=== PATIENT | male | born 1970 | race Caucasian/White ===

== ENCOUNTER 2016-08-05 17:37 | Emergency (ER) | payer OTHER ==
[2016-08-05 18:37] VITALS: RESP 18
--- NOTE | 2016-08-05 19:26 | ED ---
Skin/Abscess/FB HPI - General Chief complaint: Skin/Abscess/Foreign Body Stated complaint: SHINGLES Time Seen by Provider: 08/05/16 19:00 Source: patient, RN notes reviewed, old records reviewed Mode of arrival: ambulatory - History of Present Illness Initial comments: Patient is a 46 [place] chief complaint of a rash over his left upper arm for the past 6 days. Patient reports that there is blisters and it feels like fire on his arm. Patient states that he had chickenpox as a child and is concerned that this is shingles. He states that he's never had shingles before. Patient states that over the past few weeks she's been increasingly stressed and feels this very tired. He denies any other immunocompromising illnesses. Patient denies any recent fever, chills chest pain, back pain, abdominal pain, nausea vomiting, numbness or tingling, dysuria or hematuria, constipation or diarrhea, headaches or visual changes, or any other current symptoms. Patient is a smoker and states that he does have COPD. - Related Data Home Medications Medication Instructions Recorded Confirmed Albuterol Inhaler [Ventolin Hfa 2 puff INHALATION RT-Q6H PRN 08/05/16 08/05/16 Inhaler] Beclomethasone Dip 80 Mcg/Puff 1 puff INHALATION RT-BID 08/05/16 08/05/16 [Qvar 80 mcg] Budesonide-Formot 160-4.5 Mcg 2 puff INHALATION RT-BID 08/05/16 08/05/16 [Symbicort 160-4.5 Mcg Inhaler] Montelukast [Singulair] 10 mg PO HS 08/05/16 08/05/16 Umeclidinium [place] [Incruse 1 puff INHALATION RT-DAILY 08/05/16 08/05/16 Ellipta] Previous Rx's Medication Instructions Recorded HYDROcodone/APAP 10-325MG [[place] 1 tab PO Q6H PRN #15 tab 08/05/16 10-325] valACYclovir HCL [Valtrex] 1,000 mg PO Q8HR 7 Days 08/05/16 Allergies Allergy/AdvReac Type Severity Reaction Status Date / Time No Known Allergies Allergy Verified 08/05/16 19:10 Review of Systems ROS Statement: Those systems with pertinent positive or pertinent negative responses have been documented in the HPI. ROS Other: All systems not noted in ROS Statement are negative. Past Medical History Past Medical History: Asthma Additional Past Medical History / Comment(s): NECK PROBLEM History of Any Multi-Drug Resistant Organisms: None Reported Past Surgical History: Tonsillectomy Past Psychological History: No Psychological Hx Reported Smoking Status: Current every day smoker Past Alcohol Use History: Occasional Past Drug Use History: None Reported General Exam - General Exam Comments Initial Comments: Well-appearing 46-year-old male. No distress. General appearance: alert, in no apparent distress Head exam: Present: atraumatic, normocephalic, normal inspection Eye exam: Present: normal appearance, PERRL, EOMI. Absent: scleral icterus, conjunctival injection, periorbital swelling ENT exam: Present: normal exam, mucous membranes moist Neck exam: Present: normal inspection. Absent: tenderness, meningismus, lymphadenopathy Respiratory exam: Present: normal lung sounds bilaterally. Absent: respiratory distress, wheezes, rales, rhonchi, stridor Cardiovascular Exam: Present: regular rate, normal rhythm, normal heart sounds. Absent: systolic murmur, diastolic murmur, rubs, gallop, clicks GI/Abdominal exam: Present: soft, normal bowel sounds. Absent: distended, tenderness, guarding, rebound, rigid Extremities exam: Present: normal inspection, full ROM, normal capillary refill. Absent: tenderness, pedal edema, joint swelling, calf tenderness Back exam: Present: normal inspection Neurological exam: Present: alert, oriented X3, CN II-XII intact Psychiatric exam: Present: normal affect, normal mood Skin exam: Present: warm, dry, intact, normal color, rash (Erythematous blisterlike rash over the left upper shoulder and upper arm. Patient's rash is consistent with shingles. It does appear to be over multiple dermatomes.) Course Vital Signs 08/05/16 08/05/16 18:33 19:30 Temperature 99.3 F 99.1 F Pulse Rate 95 92 Respiratory 18 18 Rate Blood Pressure 121/74 122/68 O2 Sat by Pulse 94 L 95 Oximetry Medical Decision Making - Medical Decision Making Patient is a 46-year-old male with chief complaint of blisterlike rash over the left upper arm for approximately 6 days. The rash extends from the upper arm towards the neck. It is consistent with multiple dermatomes. Patient will be started on Valtrex and given pain medication. Discussed follow-up with primary care provider regards to Neurontin or gabapentin for postherpetic neuralgia. Patient agrees with treatment plan will comply. I discussed that he is contagious until all the lesions have crusted over. Patient agrees with this and states that he will avoid any immune compress pupil. Patient's history plan will comply. Disposition Clinical Impression: Shingles Disposition: HOME SELF-CARE Condition: Good Instructions: Shingles (ED) Additional Instructions: Continue to apply the, motion. Patient advised to take the prescriptions as directed. Follow-up with primary care provider if symptoms continue to persist and for postherpetic neuralgia pain. Patient advised to return to the emergency department if any alarming signs or symptoms occur. Patient is contagious to anybody is unvaccinated to the varicella virus. Patient needs to avoid any contact with immunocompromised people until all the blisters are crusted over. Prescriptions: HYDROcodone/APAP 10-325MG [[place] 10-325] 1 tab PO Q6H PRN #15 tab PRN Reason: Pain valACYclovir HCL [Valtrex] 1,000 mg PO Q8HR 7 Days Referrals: Noreen Esposito MD [Primary Care Provider] - 1-2 days Time of Disposition: 19:26
[2016-08-05 19:33] VITALS: BP 122/68; PULSE 92; TEMP 99.1
== END 2016-08-05 19:30 | disposition home or self-care (01) ==
LOC: EC 17:37
DX: B02.9 Zoster without complications (principal); J45.909 Unspecified asthma, uncomplicated; F17.200 Nicotine dependence, unspecified, uncomplicated; Z79.51 Long term (current) use of inhaled steroids; Z79.899 Other long term (current) drug therapy; Z88.8 Allergy status to other drugs, medicaments and biological substances
CPT/HCPCS: 99282

== ENCOUNTER 2018-09-25 18:57 | Inpatient (IN) | payer MEDICAID, OTHER ==
[2018-09-25] MEDS ORDERED: IPRATROPIUM-ALBUTEROL 3 ML NEB INHALATION STA (20:18)
--- NOTE | 2018-09-25 21:32 | XR ---
EXAMINATION TYPE: XR chest 2V DATE OF EXAM: 09/25/2018 COMPARISON: 09/04/2010 HISTORY: Pain TECHNIQUE: Frontal and lateral views of the chest are obtained. FINDINGS: Heart and mediastinum are normal. Lungs are clear. Diaphragm is normal. Bony thorax is int act IMPRESSION: Normal chest. No change.
--- NOTE | 2018-09-26 04:00 | ED ---
General Adult HPI - General Source: patient, RN notes reviewed, old records reviewed Mode of arrival: ambulatory Limitations: no limitations <Mark Valenzuela - Last Filed: 09/26/18 14:23> <Reagan King - Last Filed: 09/30/18 09:35> - General Chief complaint: Psychiatric Symptoms Stated complaint: suicidal Time Seen by Provider: 09/25/18 19:51 - History of Present Illness Initial comments: 40-year-old male patient passed no history of asthma presents ED for depression suicidal ideations. Patient reports that his father recently. Patient states that he has been very depressed since then. Patient reports he had a plan to drive his car into a wall in order to commit suicide. Patient states that he was encouraged by 1 of his siblings to present to the ER in order to receive help. Patient states that he had approximately 3 mile walk to the emergency department and feels that his asthma is probably worsened. Patient denies any chest pain. Patient denies any other complaints at this time. Patie nt states that he has not taken any action to hurt himself or hurt any other people today. Systemic: Pt denies fatigue, myalgia, fever/chills, rash. Pt denies weakness, night sweats, weight loss. Neuro: Pt denies headache, visual disturbances, syncope or pre-syncope. HEENT: Pt denies ocular discharge or irritation, otalgia, rhinorrhea, pharyngitis or notable lymphadenopathy. Cardiopulmonary: Pt denies chest pain, SOB, heart palpitations, dyspnea on exertion. Abdominal/GI: Pt denies abdominal pain, n/v/d. : Pt denies dysuria, burning w/ urination, frequency/urgency. Denies new onset urinary or bowel incontinence. MSK: Pt denies myalgia, loss of strength or function in extremities. Neuro: Pt denies new onset weakness, paresthesias. (Mark Valenzuela) - Related Data Home Medications Medication Instructions Recorded Confirmed Albuterol Inhaler [Ventolin Hfa 2 puff INHALATION RT-Q6H PRN 08/05/16 09/26/18 Inhaler] Budesonide-Formot 160-4.5 Mcg 2 puff INHALATION RT-BID 08/05/16 09/26/18 [Symbicort 160-4.5 Mcg Inhaler] Montelukast [Singulair] 10 mg PO HS 08/05/16 09/26/18 Umeclidinium [place] [Incruse 1 puff INHALATION RT-DAILY 08/05/16 09/26/18 Ellipta] Famotidine [Pepcid] 20 mg PO DAILY 09/25/18 09/26/18 Gabapentin [Neurontin] 600 mg PO TID 09/25/18 09/26/18 Acetaminophen Tab [Tylenol] 650 mg PO DIRECTED PRN 09/26/18 09/26/18 Allergies Allergy/AdvReac Type Severity Reaction Status Date / Time No Known Allergies Allergy Verified 09/26/18 12:58 Review of Systems ROS Other: All systems not noted in ROS Statement are negative. <Mark Valenzuela - Last Filed: 09/26/18 14:23> ROS Other: All systems not noted in ROS Statement are negative. <Reagan King - Last Filed: 09/30/18 09:35> ROS Statement: Those systems with pertinent positive or pertinent negative responses have been documented in the HPI. Past Medical History Past Medical History: Asthma Additional Past Medical History / Comment(s): NECK PROBLEM History of Any Multi-Drug Resistant Organisms: None Reported Past Surgical History: Tonsillectomy Past Psychological History: No Psychological Hx Reported Smoking Status: Current every day smoker Past Alcohol Use History: Daily Past Drug Use History: None Reported <Mark Valenzuela - Last Filed: 09/26/18 14:23> - Past Family History Mother Family Medical History: COPD Additional Family Medical History / Comment(s): Rheumatoid arthritis Father Family Medical History: COPD <Reagan King - Last Filed: 09/30/18 09:35> General Exam Limitations: no limitations <Mark Valenzuela - Last Filed: 09/26/18 14:23> - General Exam Comments Initial Comments: Constitutional: NAD, AOX3, Pt has pleasant affect. HEENT: NC/AT, trachea midline, neck supple, no lymphadenopathy. Posterior pharynx non erythematous, without exudates. External ears appear normal, without discharge. Mucous membranes moist. Eyes PERRLA, EOM intact. There is no scleral icterus. No pallor noted. Cardiopulmonary: RRR, no murmurs, rubs or gallops, no JVD noted. Mild wheezing in anterior lung armas, after breathing treatment Lungs CTAB in anterior and posterior armas. No peripheral edema. Abdominal exam: Abdomen soft and non-distended. Abdomen non-tender to palpation in all 4 quadrants. Bowel sounds active in LLQ. No hepatosplenomegaly. No ecchymosis Neuro: CN II-XII grossly intact. No nuchal rigidity. MSK: No posterior calf tenderness bilaterally, homans sign negative bilaterally. Posterior tibialis and radial pulse +2 bilaterally. Sensation intact in upper and lower extremities. Full active ROM in upper and lower extremities, 5/5 stregnth. (Mark Valenzuela) Course Vital Signs 09/25/18 09/25/18 09/25/18 19:41 20:49 20:55 Temperature 98.2 F Pulse Rate 108 H 70 72 Respiratory 16 16 16 Rate Blood Pressure 144/92 O2 Sat by Pulse 96 Oximetry 09/26/18 09/26/18 09/26/18 03:00 07:30 07:41 Temperature Pulse Rate 88 99 98 Respiratory 18 Rate Blood Pressure 146/85 O2 Sat by Pulse 96 Oximetry 09/26/18 12:19 Temperature 97.2 F L Pulse Rate 95 Respiratory 18 Rate Blood Pressure 121/85 O2 Sat by Pulse 98 Oximetry Medical Decision Making <Mark Valenzuela - Last Filed: 09/26/18 14:23> - Lab Data Result diagrams: 09/26/18 14:00 09/27/18 07:23 <Reagan King - Last Filed: 09/30/18 09:35> - Medical Decision Making 40-year-old male patient passed no history of asthma presents ED for depression suicidal ideations. Patient reports that his father recently. Patient states that he has been very depressed since then. Patient reports he had a plan to drive his car into a wall in order to commit suicide. Patient states that he was encouraged by 1 of his siblings to present to the ER in order to receive help. Patient states that he had approximately 3 mile walk to the [facility] ency department and feels that his asthma is probably worsened. Patient denies any chest pain. Patient denies any other complaints at this time. Patient states that he has not taken any action to hurt himself or hurt any other people today. Pt VSS, afebrile. Physical exam displayed: Mild wheezing in anterior lung armas, after breathing treatment Lungs CTAB in anterior and posterior armas. Chest x-ray revealed no acute process. Patient asymptomatic after breathing treatment. Patient clear for psychiatric evaluation. Pt signed out to attending physician Dr. Durant. Patient admitted to this psychiatric facility. (Mark Valenzuela) I saw this patient in conjunction with the physician educational assistant. I performed independent history and physical exam. Agree with case management. (Reagan King) - Lab Data Lab Results 09/26/18 Range/Units 04:40 Urine Opiates Screen Not Detected (NotDetected) Ur Oxycodone Screen Not Detected (NotDetected) Urine Methadone Screen Not Detected (NotDetected) Ur Propoxyphene Screen Not Detected (NotDetected) Ur Barbiturates Screen Not Detected (NotDetected) U Tricyclic Antidepress Not Detected (NotDetected) Ur Phencyclidine Scrn Not Detected (NotDetected) Ur Amphetamines Screen Not Detected (NotDetected) U Methamphetamines Scrn Not Detected (NotDetected) U Benzodiazepines Scrn Not Detected (NotDetected) Urine Cocaine Screen Detected H (NotDetected) U Marijuana (THC) Screen Not Detected (NotDetected) Disposition Is patient prescribed a controlled substance at d/c from ED?: No <Mark Valenzuela - Last Filed: 09/26/18 14:23> <Reagan King - Last Filed: 09/30/18 09:35> Clinical Impression: Depression, Suicidal ideation Disposition: ADMITTED IP TO THIS [facility] Condition: Serious
[2018-09-26 05:29] LABS: Amphetamine Screen,Urine Not Detected (NotDetected); Barbiturate Screen,Urine Not Detected (NotDetected); Benzodiazepines Screen,Urine Not Detected (NotDetected); Cocaine Screen,Urine Detected (NotDetected); Methadone Screen, Urine Not Detected (NotDetected); Opiate Screen,Urine Not Detected (NotDetected); Oxycodone Screen, Urine Not Detected (NotDetected); Phencyclidine Screen,Urine Not Detected (NotDetected); Tricyclic Antidepressant,Urine Not Detected (NotDetected); Urn Cannabinoid Scrn Not Detected (NotDetected)
[2018-09-26] MEDS ORDERED: IPRATROPIUM-ALBUTEROL 3 ML NEB INHALATION STA (07:20)
[2018-09-26] MEDS ORDERED: GABAPENTIN 300 MG CAP PO SCH (09:00)
[2018-09-26] MEDS ORDERED: ACETAMINOPHEN TAB 325 MG TAB PO STA (10:56)
[2018-09-26] MEDS ORDERED: LORazepam 1 MG TAB PO PRN ×2 (11:38)
[2018-09-26] MEDS: LORazepam 1 MG TAB PO PRN (12:15)
[2018-09-26] MEDS ORDERED: ZIPRASIDONE 20 MG VIAL IM PRN (12:26)
[2018-09-26] MEDS ORDERED: MAGNESIUM HYDROXIDE 2,400 MG/10 ML CUP PO PRN (12:26)
[2018-09-26] MEDS: NICOTINE 21MG/24HR PATCH TRANSDERM SCH (14:25)
[2018-09-26] MEDS: ACETAMINOPHEN TAB 325 MG TAB PO PRN (14:26)
[2018-09-26 14:35] LABS: Anisocytosis Slight; Basophils # (A) 0.1 k/uL (0-0.2); Basophils % (A) 1 %; Eosinophils # (A) 0.2 k/uL (0-0.7); Eosinophils % (A) 3 %; HCT 46.9 % (39.0-53.0); Lymphocytes # (A) 2.1 k/uL (1.0-4.8); Lymphocytes % (A) 33 %; MCH 29.7 pg (25.0-35.0); MCV 92.7 fL (80.0-100.0); Mean Platelet Volume 7.5; Monocytes # (A) 0.5 k/uL (0-1.0); Monocytes % (A) 8 %; Neutrophils # (A) 3.3 k/uL (1.3-7.7); Neutrophils % (A) 51 %; Platelet Count 160 k/uL (150-450); RBC 5.06 m/uL (4.30-5.90); RDW 16.1 % (11.5-15.5); WBC 6.5 k/uL (3.8-10.6)
[2018-09-26 14:59] LABS: Albumin 4.8 g/dL (3.5-5.0); Calcium 10.3 mg/dL (8.4-10.2); Potassium 5.1 mmol/L (3.5-5.1); Total Bilirubin 0.6 mg/dL (0.2-1.3); Total Protein 8.3 g/dL (6.3-8.2)
[2018-09-26 15:14] LABS: Cholesterol 251 mg/dL (<200); Triglycerides 69 mg/dL (<150)
[2018-09-26 15:21] LABS: LDL Cholesterol,Calculated 92 mg/dL (0-99)
[2018-09-26 15:23] LABS: HDL Cholesterol 145 mg/dL (40-60)
--- NOTE | 2018-09-26 15:52 | P.HPMEDMHU ---
History of Present Illness H&P Date: 09/26/18 Chief Complaint: depression Patient is a 48-year-old male past medical history of asthma, tobacco abuse, chronic neck problems, and rheumatoid arthritis who presented to the ER with complaints of suicidal ideation. He has subsequently been admitted to the mental health unit and we are asked to evaluate for medical H&P. Patient seen and examined. He states that his girlfriend and he has been suffering from depression. He has been drinking up to a fifth daily his last drink was yesterday at 5 PM, he has been drinking this much for approximately 20 days.. He reports that he used cocaine and attempt to compensate as well. He is very concerned his lost 15-20 pounds over the last several weeks. He reports that after his long walks the hospital his asthma was exacerbated by this was relieved with one breathing treatment in the ER. He denies any recent cough, cold, fever, flu, nausea, vomiting, or shortness of breath. He states he has had kidney problems in the past and his kidneys have shut down along with jaundice developing. This was due to urinary retention at that point in time. His PCP is typically Dr. sEposito that he called the office and got a message that Dr. Mcdermott is now covering her patients. Review of Systems Pertinent positives and negatives as discussed in HPI, a complete review of systems was performed and all other systems are negative. Past Medical History Past Medical History: Asthma Additional Past Medical History / Comment(s): Chronic neck pain, rheumatoid arthritis, acid reflux, prior kidney and liver problems History of Any Multi-Drug Resistant Organisms: None Reported Past Surgical History: Tonsillectomy Additional Past Surgical History / Comment(s): Colonoscopy, repair of colonic perforation. Past Psychological History: No Psychological Hx Reported Smoking Status: Current every day smoker Past Alcohol Use History: Daily Past Drug Use History: Cocaine Additional History: Works as a long-distance student truck driver. He typically does not use illicit drugs. - Past Family History Mother Family Medical History: COPD Additional Family Medical History / Comment(s): Rheumatoid arthritis Father Family Medical History: COPD Medications and Allergies Home Medications Medication Instructions Recorded Confirmed Type Albuterol Inhaler [Ventolin Hfa 2 puff INHALATION RT-Q6H PRN 08/05/16 09/26/18 History Inhaler] Budesonide-Formot 160-4.5 Mcg 2 puff INHALATION RT-BID 08/05/16 09/26/18 History [Symbicort 160-4.5 Mcg Inhaler] Montelukast [Singulair] 10 mg PO HS 08/05/16 09/26/18 History Umeclidinium [place] [Incruse 1 puff INHALATION RT-DAILY 08/05/16 09/26/18 History Ellipta] Famotidine [Pepcid] 20 mg PO DAILY 09/25/18 09/26/18 History Gabapentin [Neurontin] 600 mg PO TID 09/25/18 09/26/18 History Acetaminophen Tab [Tylenol] 650 mg PO DIRECTED PRN 09/26/18 09/26/18 History Allergies Allergy/AdvReac Type Severity Reaction Status Date / Time No Known Allergies Allergy Verified 09/26/18 12:58 Physical Exam Osteopathic Statement: *. No significant issues noted on an osteopathic structural exam other than those noted in the History and Physical/Consult. Vitals: Vital Signs Temp Pulse Pulse Pulse Resp BP BP 09/26/18 15:35 99 16 168/76 09/26/18 14:28 98 18 09/26/18 13:24 98.2 F 81 18 09/26/18 13:00 98.2 F 81 18 09/26/18 12:19 97.2 F L 95 18 121/85 09/26/18 07:41 98 09/26/18 07:30 99 09/26/18 03:00 88 18 146/85 09/25/18 20:55 72 16 09/25/18 20:49 70 16 09/25/18 19:41 98.2 F 108 H 16 144/92 BP Pulse Ox 09/26/18 15:35 09/26/18 14:28 135/86 09/26/18 13:24 132/77 09/26/18 13:00 132/77 09/26/18 12:19 98 09/26/18 07:41 09/26/18 07:30 09/26/18 03:00 96 09/25/18 20:55 09/25/18 20:49 09/25/18 19:41 96 Intake and Output 09/26/18 09/26/18 09/26/18 06:59 14:59 22:59 Other: Weight 62.621 kg General: non toxic, no distress, appears at stated age, cachectic,, temporal wasting Derm: no unusual rashes/lesions no unusual ecchymoses, warm, dry Head: atraumatic, normocephalic, symmetric Eyes: EOMI, no lid lag, anicteric sclera, pupils equal round reactive to light ENT: Nose and ears atraumatic, no thrush, no pharyngeal erythema Neck: No thyromegaly, no cervical lymphadenopathy, trachea midline, supple Mouth: no lip lesion, mucus membranes moist Cardiovascular: S1S2 reg, no murmur, positive posterior tibial pulse bilateral, no edema, capillary refill less than 2 seconds Lungs: CTA bilateral, no rhonchi, no rales , no accessory muscle use Abdominal: soft, nontender to palpation, no guarding, no appreciable organomegaly, normal bowel sounds Ext: no gross muscle atrophy, muscle strength 5 out of 5 in all 4 extremities grossly, no contractures, Neuro: CN II-XI grossly intact, light touch intact all 4 extremities, finger to nose within normal limits, Psych: Alert, oriented, appropriate affect Cranial Nerve Examination - Cranial Nerves Cranial Nerve II- Optic: Intact Cranial Nerve III- Oculomotor: Intact Cranial Nerve IV- Trochlear: Intact Cranial Nerve V- Trigeminal: Intact Cranial Nerve - Abducens: Intact Cranial Nerve VII- Facial: Intact Cranial Nerve VIII- Auditory: Intact Cranial Nerve IX- Glossopharyngeal: Intact Cranial Nerve X- Vagus: Intact Cranial Nerve XI- Accessory: Intact Cranial Nerve XII- Hypoglossal: Intact Results CBC & Chem 7: 09/26/18 14:00 09/26/18 14:00 Labs: Abnormal Lab Results - Last 24 Hours (Table) 09/26/18 09/26/18 09/26/18 Range/Units 04:40 14:00 14:00 RDW 16.1 H (11.5-15.5) % Sodium (137-145) mmol/L BUN (9-20) mg/dL Creatinine (0.66-1.25) mg/dL Calcium (8.4-10.2) mg/dL AST (17-59) U/L Total Protein (6.3-8.2) g/dL Cholesterol 251 H (<200) mg/dL HDL Cholesterol 145 H (40-60) mg/dL TSH (0.465-4.680) mIU/L Urine Cocaine Screen Detected H (NotDetected) 09/26/18 Range/Units 14:00 RDW (11.5-15.5) % Sodium 135 L (137-145) mmol/L BUN 21 H (9-20) mg/dL Creatinine 1.35 H (0.66-1.25) mg/dL Calcium 10.3 H (8.4-10.2) mg/dL AST 61 H (17-59) U/L Total Protein 8.3 H (6.3-8.2) g/dL Cholesterol (<200) mg/dL HDL Cholesterol (40-60) mg/dL TSH 10.200 H (0.465-4.680) mIU/L Urine Cocaine Screen (NotDetected) Chest x-ray: report reviewed Thrombosis Risk Factor Assmnt - DVT/VTE Prophylaxis DVT/VTE Prophylaxis: Low risk, early ambulation encouraged - Choose All That Apply Any of the Below Risk Factors Present?: No Other Risk Factors: No Other congenital or acquired thrombophilia - If yes, enter type in comment: No Thrombosis Risk Factor Assessment Level: Very Low Risk Assessment and Plan Assessment: Asthma without exacerbation -Resume home Symbicort, substitutes per Najma for Incruse ellipta, as needed albuterol -No indication for steroid at this time Dehydration as evidenced by elevated Bun, creatinine, and calcium -Encourage oral fluid intake -Repeat labs in a.m. Severe protein calorie malnutrition, weight loss - ensure - encourage oral intake Elevated TSH -Check free T4 Alcohol intoxication with impending withdrawal -Start folic acid, thiamine -CIWA protocol -Cessation encouraged Chronic back pain -Tylenol and Motrin as needed GERD -resume home Pepcid Tobacco abuse -Cessation -Nicotine replacement Thank you for allowing us to participate in the care of this patient. We will follow peripherally. Do not hesitate to contact us with questions. Someone can be reached from the [facility] hospitalist group at all hours of the day at [phone].
[2018-09-26] MEDS: GABAPENTIN 300 MG CAP PO SCH ×2 (16:15→22:25)
[2018-09-26] MEDS: FOLIC ACID 1 MG TAB PO SCH (16:16)
[2018-09-26] MEDS: THIAMINE 100 MG TAB PO SCH (16:16)
[2018-09-26] MEDS: MONTELUKAST 10 MG TAB PO SCH (22:25)
[2018-09-26] MEDS: QUEtiapine 50 MG TAB PO SCH (22:26)
[2018-09-26 23:32] LABS: Hemoglobin A1C 5.2 % (4.0-6.0)
[2018-09-27] MEDS: SYMBICORT 160-4.5 MCG INHALER INHALATION SCH ×3 (07:30→22:21)
[2018-09-27 08:16] LABS: Calcium 10.1 mg/dL (8.4-10.2); Potassium 4.9 mmol/L (3.5-5.1)
[2018-09-27] MEDS: buPROPion XL 150 MG TAB.ER.24H PO SCH (08:41)
[2018-09-27] MEDS: FAMOTIDINE 20 MG TAB PO SCH (08:41)
[2018-09-27] MEDS: FOLIC ACID 1 MG TAB PO SCH (08:41)
[2018-09-27] MEDS: GABAPENTIN 300 MG CAP PO SCH ×3 (08:41→20:59)
[2018-09-27] MEDS: THIAMINE 100 MG TAB PO SCH (08:41)
[2018-09-27] MEDS: NICOTINE 21MG/24HR PATCH TRANSDERM SCH (08:42)
[2018-09-27] MEDS: LORazepam 1 MG TAB PO PRN ×5 (08:45→21:03)
[2018-09-27 09:31] LABS: T4, Free (Free Thyroxine) 0.91 ng/dL (0.78-2.19)
[2018-09-27] MEDS: IPRATROPIUM 0.5 MG/2.5 ML NEBU INHALATION SCH ×4 (10:07→20:28)
--- NOTE | 2018-09-27 10:55 | P.HP ---
Psychiatric H&P - . H&P Date: 09/27/18 History & Physical: Allergies Allergy/AdvReac Type Severity Reaction Status Date / Time No Known Allergies Allergy Verified 09/26/18 12:58 Vital Signs Temp 98.7 F 09/27/18 06:45 Pulse 94 09/27/18 06:45 Resp 12 09/27/18 06:45 BP 97/65 09/27/18 06:45 Pulse Ox 94 L 09/26/18 18:37 Intake & Output 09/26/18 09/27/18 09/27/18 18:59 06:59 18:59 Weight 62.621 kg 63 kg Laboratory Last Values WBC 6.5 k/uL (3.8-10.6) 09/26/18 14:00 RBC 5.06 m/uL (4.30-5.90) 09/26/18 14:00 Hgb 15.0 gm/dL (13.0-17.5) 09/26/18 14:00 Hct 46.9 % (39.0-53.0) 09/26/18 14:00 MCV 92.7 fL (80.0-100.0) 09/26/18 14:00 MCH 29.7 pg (25.0-35.0) 09/26/18 14:00 MCHC 32.0 g/dL (31.0-37.0) 09/26/18 14:00 RDW 16.1 % (11.5-15.5) H 09/26/18 14:00 Plt Count 160 k/uL (150-450) 09/26/18 14:00 Neutrophils % 51 % 09/26/18 14:00 Lymphocytes % 33 % 09/26/18 14:00 Monocytes % 8 % 09/26/18 14:00 Eosinophils % 3 % 09/26/18 14:00 Basophils % 1 % 09/26/18 14:00 Neutrophils # 3.3 k/uL (1.3-7.7) 09/26/18 14:00 Lymphocytes # 2.1 k/uL (1.0-4.8) 09/26/18 14:00 Monocytes # 0.5 k/uL (0-1.0) 09/26/18 14:00 Eosinophils # 0.2 k/uL (0-0.7) 09/26/18 14:00 Basophils # 0.1 k/uL (0-0.2) 09/26/18 14:00 Anisocytosis Slight 09/26/18 14:00 Sodium 141 mmol/L (137-145) 09/27/18 07:23 Potassium 4.9 mmol/L (3.5-5.1) 09/27/18 07:23 Chloride 104 mmol/L (98-107) 09/27/18 07:23 Carbon Dioxide 28 mmol/L (22-30) 09/27/18 07:23 Anion Gap 9 mmol/L 09/27/18 07:23 BUN 21 mg/dL (9-20) H 09/27/18 07:23 Creatinine 1.27 mg/dL (0.66-1.25) H 09/27/18 07:23 Est GFR (CKD-EPI)AfAm 77 (>60 ml/min/1.73 sqM) 09/27/18 07:23 Est GFR (CKD-EPI)NonAf 66 (>60 ml/min/1.73 sqM) 09/27/18 07:23 Glucose 104 mg/dL (74-99) H 09/27/18 07:[address] Glu mg/dL 103 09/26/18 14:00 Hemoglobin A1c 5.2 % (4.0-6.0) 09/26/18 14:00 Calcium 10.1 mg/dL (8.4-10.2) 09/27/18 07:23 Total Bilirubin 0.6 mg/dL (0.2-1.3) 09/26/18 14:00 AST 61 U/L (17-59) H 09/26/18 14:00 ALT 43 U/L (21-72) 09/26/18 14:00 Alkaline Phosphatase 96 U/L (38-126) 09/26/18 14:00 Total Protein 8.3 g/dL (6.3-8.2) H 09/26/18 14:00 Albumin 4.8 g/dL (3.5-5.0) 09/26/18 14:00 Triglycerides 69 mg/dL (<150) 09/26/18 14:00 Cholesterol 251 mg/dL (<200) H 09/26/18 14:00 LDL Cholesterol, Calc 92 mg/dL (0-99) 09/26/18 14:00 HDL Cholesterol 145 mg/dL (40-60) H 09/26/18 14:00 TSH 12.100 mIU/L (0.465-4.680) H 09/27/18 07:23 Free T4 0.91 ng/dL (0.78-2.19) 09/27/18 07:23 Urine Opiates Screen Not Detected (NotDetected) 09/26/18 04:40 Ur Oxycodone Screen Not Detected (NotDetected) 09/26/18 04:40 Urine Methadone Screen Not Detected (NotDetected) 09/26/18 04:40 Ur Propoxyphene Screen Not Detected (NotDetected) 09/26/18 04:40 Ur Barbiturates Screen Not Detected (NotDetected) 09/26/18 04:40 U Tricyclic Antidepress Not Detected (NotDetected) 09/26/18 04:40 Ur Phencyclidine Scrn Not Detected (NotDetected) 09/26/18 04:40 Ur Amphetamines Screen Not Detected (NotDetected) 09/26/18 04:40 U Methamphetamines Scrn Not Detected (NotDetected) 09/26/18 04:40 U Benzodiazepines Scrn Not Detected (NotDetected) 09/26/18 04:40 Urine Cocaine Screen Detected (NotDetected) H 09/26/18 04:40 U Marijuana (THC) Screen Not Detected (NotDetected) 09/26/18 04:40 09/27/18 10:55 Chief complaint Suicidal thoughts History of presenting illness Patient stated his girlfriend/fianc of seven years on September 05, 2018. Things have fallen apart since then he says. He reports crying spells, no motivation, does not want to work, stressed at work, reports missing lot of time at work, started drinking heavily since the of his girlfriend, prior to that he says he is beer drinker. He states his girl friend, majo, children w ill be calling him constantly. He reports feeling extremely, sad, hopeless, looking at his girl friends picture, called his sister and threatened suicidal ideations due to feeling, frustrated. He stated he was also drunk at that time, reports to have consumed a litre of vodka. He stated he did not want to hurt self and decided to go the hospital and get help. He claims to have walked to the hospital as he did not want to drive under the influence of alcohol. He stated kendal in God, kendal things could get better, and believing in self keeps him moving forward in his life and currently denies any intentions or plans to hurt self or others. He reports mood swings and says he is quick to change, stating he could be feeling down and if something good comes up he would snap into being happy and upbeat. He denies current auditory or visual hallucinations. He reports feeling paranoid at times depending upon the situation. Past psychiatric history One psychiatric hospitalization 15 years ago after the of his mother, bad grief. Reports being diagnosed with manic depression. He report s being treated with xanax, seroquel. He claims his Primary care physician Dr. Velasquez would prescribe him psychiatric medications. He claims to have stopped taking psychiatric medications many years ago. Substance use history He claims his friend gave him cocaine few days ago, stopped marijuana use 6 weeks ago, started drinking one pint of vodka every day since the the of his girlfriend on september 05, 2018. Legal problems Child support issues, no pending cases. Family psychiatric treatment history denies Medical history Asthma, neck problem Social history Born in [place], [place]. Riased by both parents. Says childhood was rough, dad was strict, financial problems, no history of abuse. Has three sisters, he is the oldest child. Graduated from [employer] with four year degree. long time ago, four children out of that mirage. 10 YEAR WORK HISTORY WITH [employer], still works with that company. Mental status exam 48 year old male, appears stated age in fair grooming and hygiene. Maintains good eye contact. No abnormal movements noted. speech and thought process are goal directed. mood is reported as sad affect constricted. Denies current auditory or visual hallucinations . denies current paranoid ideations. The patient is alert and oriented 4 and in no apparent distress. Denies current suicidal or homicidal ideation. insight and judgment are improving, wants to get help and get better. Diagnosis Major depression recurrent moderate type Polysubstance abuse, Alcohol, cocaine and marijuana abuse Plan 48-year-old male admitted through emergency department for suicidal ideations. Medicine consult for history and physical examination psychosocial evaluation. After discussing benefits and risks of medications he has agreed to take wellbutrin for depression and requested seroquel for sleep. Will start him on wellbutrin 150mg po daily for depression and seroquel 50mg po qhs. Dose to be titrated as tolerated and responsiveness. Continue PRN medications as needed for agitation Monitor for symptoms To receive milieu therapy group therapy individual therapy occupational therapy recreational therapy and medication education. Discharge with outpatient follow-up. Treatment goals: Medication stabilization of depression Insight improvement and encourage treatment adherence, and development of better coping skills will continue to be free of suicide thoughts and behavior.
[2018-09-27] MEDS: ALBUTEROL INHALER 60 PUFF/8 GM INHALER INHALATION PRN ×2 (13:37→19:04)
[2018-09-27] MEDS: ACETAMINOPHEN TAB 325 MG TAB PO PRN (17:27)
[2018-09-27] MEDS: QUEtiapine 50 MG TAB PO SCH (20:59)
[2018-09-27] MEDS: MONTELUKAST 10 MG TAB PO SCH (20:59)
[2018-09-28] MEDS: NICOTINE 21MG/24HR PATCH TRANSDERM SCH (08:36)
[2018-09-28] MEDS: THIAMINE 100 MG TAB PO SCH (08:37)
[2018-09-28] MEDS: FAMOTIDINE 20 MG TAB PO SCH (08:37)
[2018-09-28] MEDS: FOLIC ACID 1 MG TAB PO SCH (08:37)
[2018-09-28] MEDS: ACETAMINOPHEN TAB 325 MG TAB PO PRN ×3 (08:37→17:05)
[2018-09-28] MEDS: GABAPENTIN 300 MG CAP PO SCH ×3 (08:37→20:40)
[2018-09-28] MEDS: buPROPion XL 150 MG TAB.ER.24H PO SCH (08:37)
[2018-09-28] MEDS: LORazepam 1 MG TAB PO PRN ×4 (08:39→20:40)
[2018-09-28] MEDS: SYMBICORT 160-4.5 MCG INHALER INHALATION SCH ×2 (08:41→20:46)
[2018-09-28] MEDS: IPRATROPIUM 0.5 MG/2.5 ML NEBU INHALATION SCH ×3 (08:43→16:43)
[2018-09-28] MEDS: ALBUTEROL INHALER 60 PUFF/8 GM INHALER INHALATION PRN ×2 (13:48→20:41)
--- NOTE | 2018-09-28 14:18 | P.PN ---
Progress Note - Text Progress Note Date: 09/28/18 Interval History: Patient is a 48-year-old male who was seen today and reports that he continues to have ups and downs during the day where he will feel fine and then have feelings of sadness, tearfulness. He states that after his mother years ago he was placed on Seroquel and given diagnosis of bipolar disorder and states he was taking 450 mg a day. He states that he continued on the Seroquel for several years and then eventually discontinued it. Patient states that he was doing fairly well and has had his current job for the last 10 years and done well at his job. He and his fiance have been together for 7 years and she on September 05 of this year. Patient states that at that time he began using alcohol heavily a fifth daily use cocaine on one occasion and also had suicidal thoughts with a plan. He had seen his primary care physician who had restarted Seroquel and he took this and alcohol in an attempt to hurt himself. Patient states that he is not having any side effects from the Wellbutrin is not sleeping well at night and is requesting an increase in his Seroquel. Patient states that he does have financial difficulties, gives away a lot of his money, and was doing less of this when he was on Seroquel a number of years ago. He is able to report episodes of depression at times that have not caused him great difficulty with his activities of daily living. He does not endorse manic symptoms but is able to endorse some hypomanic symptoms with periods of de creased need for sleep, increased energy and more impulsive spending. Patient was using 1-2 beers on a daily basis prior to his fiance's . Mental Status: Appearance/Attitude: Patient is appropriately and neatly dressed, makes good eye contact and is cooperative. Behavior: Patient does not exhibit any psychomotor retardation or agitation but was tearful during the interview. Speech/Language: Patient's speech is spontaneous of normal volume and rhythm and he is coherent. Thought Process: Patient was goal-directed, no evidence of loose association or flight of ideas Thought Content: Patient denies any auditory or visual hallucinations and no delusions or paranoid ideation were elicited. Patient states that he continues to have periods where he feels overwhelmed, irritable and extremely tearful. He states that these times he is very sad and has suicidal thoughts. He reports that he is not sleeping well perhaps 12 hours a night, is complaining of a headache as well as pain. He states he has been eating better today. Suicidal/Homicidal Ideation: Patient continues to report suicidal thoughts at times with no intent to act or plan and no current homicidal ideation. Sensorium/Cognition: Patient is alert and oriented to person, place, and time and his recent and remote memory are grossly intact. Mood/Affect: Patient's mood remains depressed, affect is appropriate to his mood Insight/Judgment: Patient's insight and judgment are fair Assessment: Patient reports a history of being diagnosed in the past when his mother with a bipolar disorder and was placed on Seroquel 450 mg a day, patient states he did well for several years on this and then discontinued it. He is able to give a history of episodes of depression as well as episodes of hypomania that have not caused him any difficulty in his work however he does have financial difficulties due to his impulsive spending, giving money away. He states that he was not using alcohol at the amount or quantity that he was after the of his fiance in August. Patient states he was drinking 2 beers a day in the past as well as a periodic shot of vodka however he states he was drinking a fifth of alcohol a day since the of his fiance. Patient is also complaining of a headache as well as ongoing pain issues and states that pain medication he was on in the past have not been that effective. Plan: Patient and I discussed continuing the Wellbutrin 150 mg in the morning and will consider increasing this further however caution due to his possible bipolar type symptoms and increasing his Seroquel to 50 mg in the morning and 100 mg at bedtime and continuing to titrate the dose to target his mood. Patient does give some history of mood fluctuation with symptoms of depression and hypomania over the course of the years. Patient continues to require hospitalization to further stabilize his mood.
[2018-09-28] MEDS: MAG HYDROX/AL HYDROX/SIMETH 30 ML CUP PO PRN (20:06)
[2018-09-28] MEDS: QUEtiapine 100 MG TAB PO SCH (20:40)
[2018-09-28] MEDS: MONTELUKAST 10 MG TAB PO SCH (20:40)
[2018-09-29] MEDS: IPRATROPIUM 0.5 MG/2.5 ML NEBU INHALATION SCH ×5 (01:37→21:01)
[2018-09-29] MEDS: NICOTINE 21MG/24HR PATCH TRANSDERM SCH (08:35)
[2018-09-29] MEDS: THIAMINE 100 MG TAB PO SCH (08:35)
[2018-09-29] MEDS: INCRUSE ELLIPTA 62.5 MG PO SCH (08:36)
[2018-09-29] MEDS: FOLIC ACID 1 MG TAB PO SCH (08:36)
[2018-09-29] MEDS: FAMOTIDINE 20 MG TAB PO SCH (08:36)
[2018-09-29] MEDS: buPROPion XL 150 MG TAB.ER.24H PO SCH (08:36)
[2018-09-29] MEDS: QUEtiapine 50 MG TAB PO SCH (08:36)
[2018-09-29] MEDS: GABAPENTIN 300 MG CAP PO SCH ×3 (08:36→21:17)
[2018-09-29] MEDS: LORazepam 1 MG TAB PO PRN ×4 (08:38→21:21)
[2018-09-29] MEDS: SYMBICORT 160-4.5 MCG INHALER INHALATION SCH ×3 (08:40→22:11)
[2018-09-29] MEDS: ALBUTEROL INHALER 60 PUFF/8 GM INHALER INHALATION PRN ×2 (12:25→17:17)
[2018-09-29] MEDS: ACETAMINOPHEN TAB 325 MG TAB PO PRN (12:27)
--- NOTE | 2018-09-29 14:10 | P.PN ---
Progress Note - Text Progress Note Date: 09/29/18 Interval History: Patient is a 48-year-old male who is admitted due to suicidal ideation, depression and had been using an increasing amount of alcohol. Patient states that he slept okay last night except for the nightmares grade dreamt that he was crashing his car with his fiance with him. He reported today that he continues to have dry heaves and vomit after most of his meals, stating that he still feels shaky and sweaty at times. Patient states that he hasn't notified nursing staff of this. He reports that he is still feeling depressed and up and down states that he was hoping that he would be in more control of his mood today but still has a crying episode when he discovered that one of his fellow peers had the same first name as his fiance. He states that he continues to have suicidal thoughts no plan to act while he is in the hospital but fears once he is discharged that he may do so. Patient reports that he is eating and did sleep well last night except for the nightmares. He reported not feeling sedated during the day with the addition of a morning dose of Seroquel. Patient states that he is interested in rehab after he is discharged he doesn't return to using alcohol, he was to call [facility] to begin the intake process but then stated to me that he has no way to get there. Mental Status: Appearance/Attitude: Patient is neatly and appropriately dressed, makes intermittent eye contact and is cooperative. Behavior: Patient does not exhibit any psychomotor agitation or retardation. Speech/Language: Patient's speech is spontaneous of normal volume and rhythm and he is coherent Thought Process: Patient is goal-directed there is no evidence of loose association or flight of ideas Thought Content: Patient denies any auditory or visual hallucinations, no delusions or paranoid ideation were elicited. Patient continues to feel depressed and sad stating he has nightmares while he is sleeping and continues to report withdrawal symptoms of feeling shaky, dry heaves. Patient states that he continues to cry and feels that his moods continues to go up and down and that he is unable to control them. Suicidal/Homicidal Ideation: Patient reports continuing to have suicidal ideation with no current plan or intent to act but fears once he is discharged if he feels this way he may act on them, he denies any current homicidal ideation. Sensorium/Cognition: Patient is alert and oriented to person, place, and time and his recent and remote memory are grossly intact. Mood/Affect: Patient's mood remains depressed and his affect is slightly blunted Insight/Judgment: Patient's insight and judgment are fair Assessment: Patient continues to express suicidal ideation as well as feeling depressed and states that his mood goes up and down and he continues to have crying spells and reported nightmares while sleeping. He states that he's been eating okay but continues to drive he and vomit after each meal. Patient continues to feel that he's having withdrawal symptoms from alcohol feeling sweaty and shaky at times. Patient has been attending groups and activities and states that he is finding that helpful. He voiced his concern that if he doesn't go to rehab he fears he may return to using alcohol once he is discharged, he was given the task of contacting [facility] to begin the intake process but stated to me that he has no way to get there. Plan: Patient will continue on Seroquel 50 mg in the morning and 100 mg at bedtime to target his symptoms of depression and irritability and for now will continue on Wellbutrin 150 mg in the morning. Patient and I discussed continuing to increase his Seroquel to target his mood. Patient was encouraged to contact [facility] or speak with social work about other referrals for inpatient alcohol rehab. Patient continues to require hospitalization to stabilize his mood and target his suicidal ideation.
[2018-09-29] MEDS: MAG HYDROX/AL HYDROX/SIMETH 30 ML CUP PO PRN ×2 (16:48→21:20)
[2018-09-29] MEDS: IBUPROFEN 400 MG TAB PO SCH ×2 (17:42→21:17)
[2018-09-29] MEDS: QUEtiapine 100 MG TAB PO SCH (21:17)
[2018-09-29] MEDS: MONTELUKAST 10 MG TAB PO SCH (21:17)
[2018-09-30] MEDS: ALBUTEROL INHALER 60 PUFF/8 GM INHALER INHALATION PRN ×2 (07:48→15:32)
[2018-09-30] MEDS: buPROPion XL 150 MG TAB.ER.24H PO SCH (08:18)
[2018-09-30] MEDS: NICOTINE 21MG/24HR PATCH TRANSDERM SCH (08:18)
[2018-09-30] MEDS: THIAMINE 100 MG TAB PO SCH (08:18)
[2018-09-30] MEDS: GABAPENTIN 300 MG CAP PO SCH ×3 (08:18→22:04)
[2018-09-30] MEDS: INCRUSE ELLIPTA 62.5 MG PO SCH (08:18)
[2018-09-30] MEDS: FOLIC ACID 1 MG TAB PO SCH (08:18)
[2018-09-30] MEDS: IBUPROFEN 400 MG TAB PO SCH ×3 (08:19→22:04)
[2018-09-30] MEDS: QUEtiapine 50 MG TAB PO SCH (08:19)
[2018-09-30] MEDS: FAMOTIDINE 20 MG TAB PO SCH (08:22)
[2018-09-30] MEDS: LORazepam 1 MG TAB PO PRN ×3 (08:26→22:05)
[2018-09-30] MEDS: IPRATROPIUM 0.5 MG/2.5 ML NEBU INHALATION SCH ×4 (08:54→22:06)
[2018-09-30] MEDS: SYMBICORT 160-4.5 MCG INHALER INHALATION SCH ×2 (09:32→20:00)
--- NOTE | 2018-09-30 12:46 | P.PN ---
Progress Note - Text Progress Note Date: 09/30/18 Interval History: Patient is a 48-year-old male who was seen today and reports that his sleep is still a little choppy, he still aguilar with episodes of tearfulness and states that he and go to group therapy today because he didn't feel he could control his mood. He states that he's been attending some of the groups however. Patient states that he continues to have suicidal thoughts at times and has no plans and states that he does not want to . Patient states that he feels guilty that his fiance of an overdose of hair when and that he may not have been able to help her enough. He states that her children blame her for his not being supportive and off. Patient states that he is eating well but continues to have some gastric upset after eating, he is also using an shore with each meal. Patient did not report that he was feeling sweaty, or shaky. Mental Status: Appearance/Attitude: Patient is neatly and appropriately dressed, makes good eye contact and was cooperative. Behavior: Patient did not display any psychomotor agitation or retardation. Speech/Language: Speech was spontaneous of normal volume and rhythm and he was coherent Thought Process: Patient was goal-directed there is no evidence of loose associations or flight of ideas Thought Content: Patient denied any auditory or visual hallucinations and no delusions or paranoid ideation were elicited. Patient states that he continues to have difficulties staying asleep, still feeling aguilar and tearful at times and is feeling suicidal at times. Patient states that there are times when he feels he can't control his mood. Patient states that he is eating well and states that he still has some gastric upset after eating but has been using an shore with each meal. Patient states he feels guilty that he wasn't able to help his fiance who overdosed on heroin. Suicidal/Homicidal Ideation: Patient states he continues to have suicidal thoughts but no plans and does not want to and denies any current homicidal ideation Sensorium/Cognition: Patient is alert and oriented to person, place, and time a nd his recent and remote memory are grossly intact Mood/Affect: Patient's mood remains depressed, tearful and his affect is appropriate to his mood Insight/Judgment: Patient's insight and judgment are fair Assessment: Patient reports that his sleep remains choppy, he continues to feel depressed aguilar and irritable and at times tearful and still reports suicidal ideation. Patient states that he is having some gastric upset has but has been eating a full meal and taking an shore on top of this. Patient reported that he feels guilty about the fact that his fianc overdosed on heroin and that he may not have been as helpful as he could have been. Patient has been attending some groups and activities. He reports no side effects from the medication. Plan: Patient will continue on Wellbutrin SR 50 mg to target his depression and will continue on Seroquel 50 mg in the morning and increase Seroquel to 200 mg at bedtime to target his mood and further stabilize his mood. We'll continue to assess whether the Wellbutrin will be necessary once the patient is on a more therapeutic dose of Seroquel. Per the medical office representative his thyroid studies are fine and no further workup is needed, no further increase in pain medication was recommended. I will also has continued patient's use of an sure as he is eating 3 meals a day. His Ativan for C while protocol will also be discontinued as the patient is no longer reporting symptoms of withdrawal and his vital signs are stable. Patient continues to require hospitalization to further stabilize his mood.
[2018-09-30] MEDS: ACETAMINOPHEN TAB 325 MG TAB PO PRN ×2 (15:33→19:59)
[2018-09-30 17:59] LABS: Appearance,Urine Clear (Clear); Bilirubin,Urine Negative (Negative); Blood,Urine Negative (Negative); Color,Urine Yellow; Glucose,Urine (UA) Negative (Negative); Ketones,Urine Negative (Negative); Leukocyte Esterase,Urine Negative (Negative); Nitrite,Urine Negative (Negative); Protein,Urine Negative (Negative); Specific Gravity,Urine 1.026 (1.001-1.035); Urobilinogen,Urine <2.0 mg/dL (<2.0)
[2018-09-30] MEDS: MAG HYDROX/AL HYDROX/SIMETH 30 ML CUP PO PRN (20:00)
[2018-09-30] MEDS: MONTELUKAST 10 MG TAB PO SCH (22:04)
[2018-09-30] MEDS: QUEtiapine 200 MG TAB PO SCH (22:04)
[2018-10-01] MEDS: IBUPROFEN 400 MG TAB PO SCH ×5 (07:56→21:56)
[2018-10-01] MEDS: INCRUSE ELLIPTA 62.5 MG PO SCH (08:21)
[2018-10-01] MEDS: NICOTINE 21MG/24HR PATCH TRANSDERM SCH (08:21)
[2018-10-01] MEDS: buPROPion XL 150 MG TAB.ER.24H PO SCH (08:22)
[2018-10-01] MEDS: THIAMINE 100 MG TAB PO SCH (08:22)
[2018-10-01] MEDS: FOLIC ACID 1 MG TAB PO SCH (08:22)
[2018-10-01] MEDS: SYMBICORT 160-4.5 MCG INHALER INHALATION SCH ×2 (08:22→19:55)
[2018-10-01] MEDS: GABAPENTIN 300 MG CAP PO SCH ×3 (08:22→21:57)
[2018-10-01] MEDS: FAMOTIDINE 20 MG TAB PO SCH (08:22)
[2018-10-01] MEDS: QUEtiapine 50 MG TAB PO SCH ×2 (08:22→16:26)
[2018-10-01] MEDS: LORazepam 1 MG TAB PO PRN ×3 (08:25→21:58)
[2018-10-01] MEDS: IPRATROPIUM 0.5 MG/2.5 ML NEBU INHALATION SCH ×4 (08:27→21:55)
--- NOTE | 2018-10-01 16:00 | P.PN ---
Progress Note - Text Progress Note Date: 10/01/18 Interval History: Patient is a 48-year-old male who was seen today and he reports that his suicidal thoughts are not as intense but he continues to have thoughts of wanting to which come and go. He states that he continues to feel sad and depressed at times it is more intense and he does become tearful. Patient states that he is still having heartburn issues and states he is still having some vomiting after meals. Patient reports that he did contact [facility] regarding rehab. Patient reports his sleep was on and off and he still had bad dreams about his fiance. Patient has however been eating. Mental Status: Appearance/Attitude: Patient is neatly and appropriately dressed and makes good eye contact and was cooperative. Behavior: Patient did not exhibit any psychomotor retardation or agitation Speech/Language: Patient's speech was spontaneous and normal volume and rhythm and he is coherent Thought Process: Patient is goal-directed there is no evidence of loose association or flight of ideas Thought Content: Patient denies any auditory or visual hallucinations no delu sions or paranoid ideation or elicited. Patient states that he continues to have periods of depression and go up and down and at times becomes tearful he states that he is feeling less irritable. States his sleep is still disrupted and continues to have bad dreams about his fiance. Patient states that he does have an appetite, continues to complain of heartburn and states that he does throw up after some meals. Suicidal/Homicidal Ideation: Patient reports that his suicidal thoughts are less intense and they continue to occur, he has no plan to act on them but at times continues to feel that he wants to and no current homicidal ideation Sensorium/Cognition: Patient is alert and oriented to person, place, and time and his recent and remote memory are grossly intact. Mood/Affect: Patient's mood is depressed and his affect is appropriate to his mood Insight/Judgment: Patient's insight and judgment are fair Assessment: Patient continues to report that he is having suicidal thoughts although they are less intense he continues to want to although this comes and goes along with feeling more depressed at times. He states he continues to have episodes of crying and his sleep is still disrupted by bad dreams. Patient continues to complain of heartburn even though he is on Pepcid as well as has and Maalox available. Patient states that he contacted [facility] regarding inpatient rehab. Patient reports no side effects from the medication. Patient is attending groups and activities. Plan: Patient continue on Wellbutrin 150 mg in the morning and will increase his quetiapine to 50 mg in the morning and 50 mg at 4 PM as well as 200 mg at bedtime and continue to titrate the dose to target his symptoms of depression. Patient continues to require inpatient admission to stabilize his mood.
[2018-10-01] MEDS: ALBUTEROL INHALER 60 PUFF/8 GM INHALER INHALATION PRN (16:24)
[2018-10-01] MEDS: ACETAMINOPHEN TAB 325 MG TAB PO PRN (16:25)
[2018-10-01] MEDS: QUEtiapine 200 MG TAB PO SCH (21:57)
[2018-10-01] MEDS: MONTELUKAST 10 MG TAB PO SCH (21:57)
[2018-10-02] MEDS: MAG HYDROX/AL HYDROX/SIMETH 30 ML CUP PO PRN (00:08)
[2018-10-02] MEDS: ALBUTEROL INHALER 60 PUFF/8 GM INHALER INHALATION PRN ×2 (07:58→16:08)
[2018-10-02] MEDS: NICOTINE 21MG/24HR PATCH TRANSDERM SCH (08:02)
[2018-10-02] MEDS: GABAPENTIN 300 MG CAP PO SCH ×3 (08:02→21:33)
[2018-10-02] MEDS: THIAMINE 100 MG TAB PO SCH (08:02)
[2018-10-02] MEDS: LORazepam 1 MG TAB PO PRN (08:03)
[2018-10-02] MEDS: IBUPROFEN 400 MG TAB PO SCH ×4 (08:03→21:33)
[2018-10-02] MEDS: FAMOTIDINE 20 MG TAB PO SCH (08:03)
[2018-10-02] MEDS: buPROPion XL 150 MG TAB.ER.24H PO SCH (08:03)
[2018-10-02] MEDS: FOLIC ACID 1 MG TAB PO SCH (08:05)
[2018-10-02] MEDS: QUEtiapine 50 MG TAB PO SCH ×2 (08:06→16:03)
[2018-10-02] MEDS: INCRUSE ELLIPTA 62.5 MG PO SCH (09:00)
[2018-10-02] MEDS: SYMBICORT 160-4.5 MCG INHALER INHALATION SCH ×2 (09:00→21:32)
--- NOTE | 2018-10-02 12:18 | P.PN ---
Progress Note - Text Progress Note Date: 10/02/18 Interval History: Patient is a 48-year-old male who was seen today and he reports that his crying spells are decreased in frequency and he felt that the addition of Seroquel in the afternoon was beneficial for his irritability. Patient states that he is feeling less depressed and that the suicidal thoughts are less frequent. He states that his sleep is improving and that he is feeling more stable. Patient states that he has been able to begin discussing some of his feelings in groups. Patient reports no complaints of side effects from the medication. Patient states that he did better with his complaints of heartburn last evening when he took Maalox after his evening meal. Patient discussed his fiance's and states that he is trying to not feel as guilty about it and is still interested in inpatient rehab after discharge from the hospital. Patient states that his appetite is good and that he has gained weight while he is been in the hospital. Mental Status: Appearance/Attitude: Patient was dressed in a hospital gown as he stated that he was wandering his clothing, he made good eye contact and was cooperative. Behavior: Patient did not exhibit any psychomotor agitation or retardation Speech/Language: Speech was spontaneous of normal volume and rhythm and he was coherent Thought Process: Patient was goal-directed and there is no evidence of loose association or flight of ideas Thought Content: Patient denied any auditory or visual hallucinations no delusions or paranoid ideation were elicited. Patient discussed the fact that his crying spells have decreased, he is not feeling as depressed and his suicidal thoughts are less frequent. He states that his sleep is improving and he is feeling less irritable at times. Patient states that he continues to wish to proceed with the inpatient rehab at [place] after discharge to prevent a relapse of his use of alcohol. Patient states that his heartburn has improved with the use of Maalox after his evening meal. Patient's appetite is good. Suicidal/Homicidal Ideation: Patient denies any current homicidal ideation and states that his suicidal thoughts of been less frequent without a plan to act and states that he no longer wants to Sensorium/Cognition: Patient is alert and oriented to person, place, and time and his recent and remote memory are grossly intact. Mood/Affect: Patient's mood is less depressed and his affect is appropriate Insight/Judgment: Patient's insight and judgment are fair Assessment: Patient reports that with the increase in Seroquel to twice a day during the day he has noticed that he was less irritable, he reports that his sleep is slowly improving and he is having less frequent crying spells as well as less frequent suicidal thoughts. Patient states he continues to have bad dreams about his fiance but states that he is beginning to discuss his feelings in groups. Patient states that his appetite has improved and his heartburn was much less last evening using Maalox. Patient reports that he is less irritable. Patient is attending groups and activities and reports that he is feeling better. Plan: Will increase the patient's Seroquel to 50 mg twice a day and 300 mg at bedtime and then on Friday evening increase his bedtime dose of Seroquel to 400 mg. For now we'll continue the patient on Wellbutrin 150 mg in the morning. Patient's Ativan when necessary was decreased to 0.5 mg on an as-needed basis 3 times a day and will eventually be discontinued. Patient awaits contact from [facility] [place] regarding whether he is accepted into their rehab program. Patient continues to require hospitalization to further stabilize his mood.
[2018-10-02] MEDS: ACETAMINOPHEN TAB 325 MG TAB PO PRN (16:03)
[2018-10-02] MEDS: LORazepam 0.5 MG TAB PO PRN ×2 (16:03→21:38)
[2018-10-02 16:31] LABS: Thyroid Peroxidase Antibodies >13000.0 U/mL (0.0-59.9)
[2018-10-02] MEDS: IPRATROPIUM 0.5 MG/2.5 ML NEBU INHALATION SCH (16:47)
--- NOTE | 2018-10-02 18:34 | P.PN ---
Subjective Progress Note Date: 10/02/18 Principal diagnosis: Depression Patient is a 48-year-old male past medical history of asthma, tobacco abuse, chronic neck problems, and arthritis who presented to the ER complaint of suicidal ideation. He has subsequently been admitted to the mental health unit. His laboratory analysis was reviewed. He had an elevated TSH up to 12 with a normal T4. Thyroid antibodies were ordered and are positive. Patient seen and examined. He reports that he has had weight loss, insomnia, stiff muscles, thinning of his skin, chronic pain that has worsened in his joints. He is also been struggling with worsening depression and difficulty controlling his mood. Informed of diagnosis of Steve's thyroiditis and need for thyroid replacement therapy. We also discussed that he will need a thyroid ultrasound after discharge from the mental health unit and that this can be arranged with Dr. Mcdermott. Objective - Vital Signs Vital signs: Vital Signs Temp 97.6 F 10/02/18 06:27 Pulse 95 10/02/18 17:05 Resp 18 10/02/18 17:05 BP 133/80 10/02/18 17:05 Pulse Ox 94 L 09/26/18 18:37 Intake & Output 10/01/18 10/02/18 10/02/18 18:59 06:59 18:59 Weight 63 kg - Exam General: non toxic, no distress, appears older than stated age Derm: Dry, thin skin warm, dry Head: atraumatic, normocephalic, symmetric Eyes: EOMI, no lid lag, anicteric sclera Mouth: no lip lesion, Mucus membranes dry Cardiovascular: S1S2 reg, no murmur, positive posterior tibial pulse bilateral, Lungs: CTA bilateral, no rhonchi, no rales , no accessory muscle use Psych: Alert, oriented, appears anxious - Labs CBC & Chem 7: 09/26/18 14:00 09/27/18 07:23 Labs: Abnormal Lab Results - Last 24 Hours (Table) 10/02/18 Range/Units 10:44 Thyroglobulin Antibody >2500.0 H (0.0-59.9) U/mL Thyroid Peroxidase Ab >72951.0 H (0.0-59.9) U/mL Assessment and Plan Assessment: Steve's thyroiditis -Start Synthroid 75 g daily -He'll need outpatient follow-up with PCP including thyroid ultrasound as well as repeat laboratory testing in 4-6 weeks -Discussed with nursing will help coordinate appointment on Friday - Patient aware of need for follow-up and signs/symptoms to look for. 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 Stewart possible ultram or increased neurontin to 800 mg Severe protein calorie malnutrition, weight loss - ensure - encourage oral intake Alcohol abuse -folic acid, thiamine -Cessation encouraged GERD - Pepcid Tobacco abuse -Cessation -Nicotine replacement Dehydration as evidenced by elevated Bun, creatinine, and calcium, improved Thank you for allowing us to participate in the care of this patient. We will follow peripherally. Do not hesitate to contact us with questions. Someone can be reached from the [facility] hospitalist group at all hours of the day at [phone].
[2018-10-02] MEDS: MONTELUKAST 10 MG TAB PO SCH (21:32)
[2018-10-02] MEDS: QUEtiapine 100 MG TAB PO SCH (21:32)
[2018-10-03] MEDS: MAG HYDROX/AL HYDROX/SIMETH 30 ML CUP PO PRN
[2018-10-03] MEDS: IPRATROPIUM 0.5 MG/2.5 ML NEBU INHALATION SCH ×2 (03:21→03:22)
[2018-10-03] MEDS: LEVOTHYROXINE 75 MCG TAB PO SCH (06:45)
[2018-10-03] MEDS: THIAMINE 100 MG TAB PO SCH (08:40)
[2018-10-03] MEDS: FAMOTIDINE 20 MG TAB PO SCH (08:40)
[2018-10-03] MEDS: buPROPion XL 150 MG TAB.ER.24H PO SCH (08:40)
[2018-10-03] MEDS: NICOTINE 21MG/24HR PATCH TRANSDERM SCH (08:40)
[2018-10-03] MEDS: FOLIC ACID 1 MG TAB PO SCH (08:40)
[2018-10-03] MEDS: IBUPROFEN 400 MG TAB PO SCH ×4 (08:40→21:03)
[2018-10-03] MEDS: LORazepam 0.5 MG TAB PO PRN ×2 (08:40→17:53)
[2018-10-03] MEDS: QUEtiapine 50 MG TAB PO SCH ×2 (08:41→15:30)
[2018-10-03] MEDS: GABAPENTIN 300 MG CAP PO SCH ×3 (08:42→21:02)
[2018-10-03] MEDS: INCRUSE ELLIPTA 62.5 MG PO SCH (08:45)
[2018-10-03] MEDS: SYMBICORT 160-4.5 MCG INHALER INHALATION SCH ×2 (08:54→21:04)
--- NOTE | 2018-10-03 14:56 | P.PN ---
Progress Note - Text Progress Note Date: 10/03/18 Interval history: Patient is seen in cross coverage today. He says his mood is been fluctuating today. He had some dreams about his girlfriend who recently last night and has been thinking about her today. He is still going through the grieving process. He does describe some ongoing anxiety. He seems to be tolerating the psychotropic medications well. He describes as a plans on going to [place] after discharge from this unit. Mental status exam: He is alert and cooperative with the interview. His speech is fluent, not rapid or pressured. Thought processes organized. His mood he describes today has been fluctuating. He does not verbalize any active thoughts of harm to self or others. No evidence of psychosis or agitation. Plan: Patient will be maintained on current psychotropic medication regimen. Continue to monitor for any medication side effects and monitor his ongoing response to treatment. His Seroquel scheduled to be increased starting tomorrow night.
[2018-10-03] MEDS: ALBUTEROL INHALER 60 PUFF/8 GM INHALER INHALATION PRN ×2 (15:15→19:34)
[2018-10-03] MEDS: QUEtiapine 100 MG TAB PO SCH (21:02)
[2018-10-03] MEDS: MONTELUKAST 10 MG TAB PO SCH (21:03)
[2018-10-04] MEDS: LEVOTHYROXINE 75 MCG TAB PO SCH (06:14)
[2018-10-04] MEDS: LORazepam 0.5 MG TAB PO PRN ×2 (06:27→14:03)
[2018-10-04] MEDS: INCRUSE ELLIPTA 62.5 MG PO SCH (09:21)
[2018-10-04] MEDS: SYMBICORT 160-4.5 MCG INHALER INHALATION SCH ×2 (09:21→21:17)
[2018-10-04] MEDS: GABAPENTIN 300 MG CAP PO SCH ×3 (09:22→21:15)
[2018-10-04] MEDS: THIAMINE 100 MG TAB PO SCH (09:22)
[2018-10-04] MEDS: FOLIC ACID 1 MG TAB PO SCH (09:22)
[2018-10-04] MEDS: NICOTINE 21MG/24HR PATCH TRANSDERM SCH (09:22)
[2018-10-04] MEDS: buPROPion XL 150 MG TAB.ER.24H PO SCH (09:22)
[2018-10-04] MEDS: QUEtiapine 50 MG TAB PO SCH ×2 (09:22→16:24)
[2018-10-04] MEDS: FAMOTIDINE 20 MG TAB PO SCH (09:22)
[2018-10-04] MEDS: IBUPROFEN 400 MG TAB PO SCH ×4 (09:23→21:15)
[2018-10-04] MEDS: MAG HYDROX/AL HYDROX/SIMETH 30 ML CUP PO PRN (10:38)
--- NOTE | 2018-10-04 14:47 | P.PN ---
Progress Note - Text Progress Note Date: 10/04/18 Interval history: Patient is seen again in cross coverage today. He reports sleeping about 5 hours last night. He does seem to be attending groups. He does not seem to voice any adverse psychotropic medication side effects. Seroquel scheduled to be titrated up to night. He does describe some fluctuation with his mood and describes himself feeling angry at staff at times although he is not displaying this outwardly. He also describes some crying spells and on and off thoughts of suicide. Mental status exam: He is alert and cooperative with the interview. His speech is fluent, not rapid or pressured. His mood he describes some fluctuations in does describe some on and off thoughts of suicide. He does not voice any thoughts of harm to others. No evidence of active psychosis or current agitation. Patient will be maintained on current psychotropic medication regimen with Seroq uel being scheduled for further titration tonight. Continue to monitor his mood and monitor his ongoing response to psychotropic medications. Continue to monitor for any medication side effects monitor regarding suicidal ideations.
[2018-10-04] MEDS: ALBUTEROL INHALER 60 PUFF/8 GM INHALER INHALATION PRN (19:29)
[2018-10-04] MEDS: QUEtiapine 400 MG TAB PO SCH (21:16)
[2018-10-04] MEDS: MONTELUKAST 10 MG TAB PO SCH (21:16)
[2018-10-05] MEDS: LEVOTHYROXINE 75 MCG TAB PO SCH (05:58)
[2018-10-05] MEDS: LORazepam 0.5 MG TAB PO PRN ×2 (06:05→17:42)
[2018-10-05] MEDS: ALBUTEROL INHALER 60 PUFF/8 GM INHALER INHALATION PRN ×2 (06:40→20:05)
[2018-10-05] MEDS: INCRUSE ELLIPTA 62.5 MG PO SCH (06:40)
[2018-10-05] MEDS: GABAPENTIN 300 MG CAP PO SCH ×3 (08:39→21:12)
[2018-10-05] MEDS: FOLIC ACID 1 MG TAB PO SCH (08:39)
[2018-10-05] MEDS: FAMOTIDINE 20 MG TAB PO SCH (08:39)
[2018-10-05] MEDS: SYMBICORT 160-4.5 MCG INHALER INHALATION SCH (08:39)
[2018-10-05] MEDS: THIAMINE 100 MG TAB PO SCH (08:39)
[2018-10-05] MEDS: NICOTINE 21MG/24HR PATCH TRANSDERM SCH (08:39)
[2018-10-05] MEDS: QUEtiapine 50 MG TAB PO SCH (08:39)
[2018-10-05] MEDS: buPROPion XL 150 MG TAB.ER.24H PO SCH (08:39)
[2018-10-05] MEDS: IBUPROFEN 400 MG TAB PO SCH ×5 (08:40→21:12)
[2018-10-05] MEDS ORDERED: QUEtiapine 50 MG TAB PO STA (09:02)
--- NOTE | 2018-10-05 12:33 | P.PN ---
Progress Note - Text Progress Note Date: 10/05/18 Interval History: Patient is a 48-year-old male who was seen today and he reports that he is still not sleeping that well although better than he was on admission. He states that he continues to feel stressed and trying to cope with his fiance's . He states that when he is upset and crying suicidal thoughts occur then otherwise they are less frequent during the day. He states that his mood has improved since his admission but he still feels that he is going up and down. Patient states he slept about 5 hours last night. States that when he is sleeping he still has bad dreams about his fiance and continues to feel depressed. He states that he has been attending groups and activities. Mental Status: Appearance/Attitude: Patient is neatly dressed and groomed, makes good eye contact and was cooperative Behavior: Patient does not exhibit any psychomotor agitation or retardation Speech/Language: Patient's speech is spontaneous of normal volume and rhythm and he is coherent Thought Process: Patient is goal-directed there is no evidence of loose association or flight of ideas Thought Content: Patient denies any auditory or visual hallucinations no delusions or paranoid ideation or elicited. Patient states that he continues to have disrupted sleep sleeping about 5 hours last night with bad dreams about his fiance's . He states that he still stressing and trying to cope with her and states that he still has crying spells. He states when he has these he has suicidal thoughts but they are less frequent. He states that he is eating well. He voiced no complaints of stomach upset or heartburn today. Suicidal/Homicidal Ideation: Patient reports he continues to have suicidal thoughts but no plan or intent to act on these are becoming less frequent and denies any current homicidal ideation. Sensorium/Cognition: Patient is alert and oriented to person, place, and time and his recent and remote memory are grossly intact Mood/Affect: Patient's mood remains slightly depressed and his affect is appropriate, he states that he still has crying spells that his mood is improved since his admission Insight/Judgment: Patient's insight and judgment are fair Assessment: Patient continues to report feeling stressed and adding difficulty coping with his fiance's , feeling that he didn't do enough. He continues to have bad dreams and is sleeping about 5 hours a night. He states that his mood has improved but still is up and down and had one crying spell yesterday and states that his suicidal thoughts are less frequent but still crosses mind with no current plan or intent to act. Patient states that his appetite is good and he had no complaints of heartburn her stomach distress today. Patient has been attending groups and activities and has found them helpful. Patient did contact [facility] regarding inpatient rehab. Patient reports no side effects from the medication and feels that they have been helpful, patient continues to request Ativan as needed Plan: Will increase the patient's Seroquel to 100 mg twice a day and continue 400 mg again this evening but increased to 600 mg should the patient continued to report poor sleep, depressed mood the patient and I reviewed the medications. Patient continues on Wellbutrin SR 150 mg Ms. unsure whether this is been of any benefit or not and we discussed discontinuing it once he is stable on the Seroquel. Patient was encouraged to continue attending groups and activities, has contacted [facility] and a packet has been sent. Patient continues to require inpatient hospitalization to further stabilize his mood and suicidal ideation.
[2018-10-05] MEDS: QUEtiapine 100 MG TAB PO SCH (14:31)
[2018-10-05] MEDS: MAG HYDROX/AL HYDROX/SIMETH 30 ML CUP PO PRN (20:06)
[2018-10-05] MEDS: MONTELUKAST 10 MG TAB PO SCH (21:12)
[2018-10-05] MEDS: QUEtiapine 400 MG TAB PO SCH (21:12)
[2018-10-06] MEDS: SYMBICORT 160-4.5 MCG INHALER INHALATION SCH ×3 (01:18→21:10)
[2018-10-06] MEDS: LEVOTHYROXINE 75 MCG TAB PO SCH (06:05)
[2018-10-06] MEDS ORDERED: QUEtiapine 50 MG TAB PO STA (08:51)
[2018-10-06] MEDS: ALBUTEROL INHALER 60 PUFF/8 GM INHALER INHALATION PRN ×2 (09:00→16:32)
[2018-10-06] MEDS: NICOTINE 21MG/24HR PATCH TRANSDERM SCH (09:00)
[2018-10-06] MEDS: FAMOTIDINE 20 MG TAB PO SCH (09:01)
[2018-10-06] MEDS: GABAPENTIN 300 MG CAP PO SCH ×3 (09:01→20:08)
[2018-10-06] MEDS: FOLIC ACID 1 MG TAB PO SCH (09:01)
[2018-10-06] MEDS: THIAMINE 100 MG TAB PO SCH (09:01)
[2018-10-06] MEDS: IBUPROFEN 400 MG TAB PO SCH ×4 (09:01→20:08)
[2018-10-06] MEDS: buPROPion XL 150 MG TAB.ER.24H PO SCH (09:02)
[2018-10-06] MEDS: INCRUSE ELLIPTA 62.5 MG PO SCH (09:03)
[2018-10-06] MEDS: QUEtiapine 100 MG TAB PO SCH ×2 (09:07→16:28)
[2018-10-06] MEDS: LORazepam 0.5 MG TAB PO PRN ×2 (09:10→16:28)
--- NOTE | 2018-10-06 14:10 | P.PN ---
Progress Note - Text Progress Note Date: 10/06/18 Interval History: Patient is a 48-year-old male who was seen today and he reports that he has no current suicidal ideation, stating that it has decreased and he still feeling slightly depressed. He states he is sleeping through the night in his dreams are less intense and less nightmarish and he is able to fall back to sleep easily after being awakened. Patient states that he is not feeling as irritable and has been attending groups and talking about his concerns regarding the of his fiance. Patient states that he is still feeling anxious at times but can't describe this further. He states that he is discovered that his [employer] has fired him, he was renting a home from his boss and so now has no place to live. Patient reports that he still feels his moods go up and down and would like to continue increasing the Seroquel. Mental Status: Appearance/Attitude: Patient is neatly and appropriately dressed and makes good eye contact and is cooperative. Behavior: Patient does not display any psychomotor agitation or retardation. Speech/Language: Patient's speech is spontaneous of normal volume and rhythm and he is coherent Thought Process: Patient is goal-directed there is no evidence of loose association or flight of ideas Thought Content: Patient denies any auditory or visual hallucinations no delusions or paranoid ideation or elicited. Patient states that his mood still goes up and down, he still feeling slightly depressed and is much less irritable than he was on admission. He reports that he sleeping well his dreams are less intense and less bothersome and he is able to return to sleep when he is awakened at night. Patient is eating well and reports no further stomach upset. Suicidal/Homicidal Ideation: Patient denies any current suicidal ideation and denies any current homicidal ideation Sensorium/Cognition: Patient is alert and oriented to person, place, and time and his recent and remote memory are grossly intact Mood/Affect: Patient's mood remains slightly depressed, he states he goes up and down and periodically has crying spells when he thinks about his fiance and his affect is appropriate to his mood Insight/Judgment: Patient's insight and judgment are fair Assessment: Patient reports that he is no longer having suicidal thoughts, state s he still feels slightly depressed but is much less irritable and continues to have periods where he becomes tearful when thinking about his fiance. He is reporting that his sleep is much better, he is able to return to sleep when awakened at night and the dreams are less intense and less disruptive. Patient reports no side effects from the medication and thinks the increased dosage during the day has been beneficial. He reports that he is eating well and has no further complaints of stomach distress. Patient states that he continues to feel anxious during the day but this is related to his thoughts about his fiance as well as what will happen to him once he is discharged from the hospital. Patient states that he will have no place to live once he is discharged as he has been fired from his job and was renting his house from his boss. Plan: Will increase the patient's Seroquel to 150 mg twice a day and 400 mg at bedtime to assist in controlling his mood. For now we'll continue the Wellbutrin 1 or 50 mg in the morning but considered discontinuing this as the patient is improving on the Seroquel and has been able to give a history of both manic and depressive symptoms. Patient and I discussed his use of the Ativan on an as-needed basis and I recommended the patient try to not continue to use that he will not be discharged on it. Patient continues to want to attend inpatient rehab to prevent his returning to the use of alcohol, he states that he has no place to live once he is discharged from the hospital. Patient and I discussed discharge soon and that this may be prior to his getting into [facility].
[2018-10-06] MEDS: ACETAMINOPHEN TAB 325 MG TAB PO PRN (16:28)
[2018-10-06] MEDS: QUEtiapine 400 MG TAB PO SCH (20:08)
[2018-10-06] MEDS: MONTELUKAST 10 MG TAB PO SCH (20:08)
[2018-10-06] MEDS: MAG HYDROX/AL HYDROX/SIMETH 30 ML CUP PO PRN (22:47)
[2018-10-07] MEDS: LEVOTHYROXINE 75 MCG TAB PO SCH (06:07)
[2018-10-07] MEDS: LORazepam 0.5 MG TAB PO PRN (07:06)
[2018-10-07] MEDS: INCRUSE ELLIPTA 62.5 MG PO SCH (08:50)
[2018-10-07] MEDS: QUEtiapine 100 MG TAB PO SCH ×2 (08:50→16:29)
[2018-10-07] MEDS: FAMOTIDINE 20 MG TAB PO SCH (08:50)
[2018-10-07] MEDS: buPROPion XL 150 MG TAB.ER.24H PO SCH (08:50)
[2018-10-07] MEDS: FOLIC ACID 1 MG TAB PO SCH (08:51)
[2018-10-07] MEDS: IBUPROFEN 400 MG TAB PO SCH ×4 (08:51→21:26)
[2018-10-07] MEDS: THIAMINE 100 MG TAB PO SCH (08:51)
[2018-10-07] MEDS: GABAPENTIN 300 MG CAP PO SCH ×3 (08:51→21:26)
[2018-10-07] MEDS: NICOTINE 21MG/24HR PATCH TRANSDERM SCH (08:55)
[2018-10-07] MEDS: SYMBICORT 160-4.5 MCG INHALER INHALATION SCH (08:58)
[2018-10-07] MEDS: MAG HYDROX/AL HYDROX/SIMETH 30 ML CUP PO PRN ×2 (10:52→19:16)
--- NOTE | 2018-10-07 12:04 | P.PN ---
Progress Note - Text Progress Note Date: 10/07/18 Interval History: Patient is a 48-year-old male who was seen today and he reports that he slept for about 6 hours last night, still has difficulty returning to sleep at times. He states that he still has episodes of sadness when he thinks about his fiance's but is not feeling as depressed or irritable as he was on admission. He reports no suicidal ideation. Patient states that he wants to stop drinking as he sees how much of the difficulty it is caused him since his fiance's . He reports his mood still goes up and down mostly related to being sad about his fiance's . Patient again discussed his impulsive spending in the past and states that he typically is depressed over the winter months and then has more energy and what could be described as hypomanic symptoms the rest of the year he states that when he receives $1200 at the beginning of the week for his salary is all gone by Friday. Mental Status: Appearance/Attitude: Patient is neatly and appropriately dressed makes eye contact and is cooperative. Behavior: Patient does not display any psychomotor agitation or retardation. Speech/Language: Patient's speech is spontaneous of normal volume and rhythm and he is coherent Thought Process: Patient is goal-directed there is no evidence of loose associ ation or flight of ideas Thought Content: Patient denies any auditory or visual hallucinations no delusions or paranoid ideation or elicited. Patient states he still is slightly depressed but much less irritable and states that he continues to be sad about his fiance's . Patient states that he sleeps about 6 hours but continues to wake up and has some difficulty returning to sleep. Patient states that he is eating well and had no complaints of stomach pain. Suicidal/Homicidal Ideation: Patient denies any current suicidal or homicidal ideation Sensorium/Cognition: Patient is alert and oriented to person, place, and time and his recent and remote memory are grossly intact Mood/Affect: Patient's mood is slightly depressed and his affect is appropriate to his mood Insight/Judgment: Patient's insight and judgment are fair Assessment: Patient continues to feel improvement, stating he is less depressed and no longer feeling irritable however he states his mood still goes up and down specifically when he thinks about his fiance's . His sleep is still disrupted but his appetite is improved and he is no longer reporting stomach pain. Patient continues to discuss his wish to stop using alcohol. Patient also again discussed his impulsive spending habits going through $1200 by the middle of the week. He states that this is behavior that is gone on for quite some time. Patient has been attending groups and activities and finds them helpful. Plan: Will increase the patient's Seroquel to 150 mg twice a day and 600 mg at bedtime to further stabilize his mood, we'll discontinue Wellbutrin as the patient does give a history of bipolar symptoms and this is an activating antidepressant. Patient and I also discussed discontinuing the Ativan as he would not be discharged on this and he is agreeable to that. We are awaiting an intake appointment at [facility] and he and I discussed discharge sometime this week. Patient requires hospitalization to further stabilize his mood
[2018-10-07] MEDS: ALBUTEROL INHALER 60 PUFF/8 GM INHALER INHALATION PRN (19:15)
[2018-10-07] MEDS: MONTELUKAST 10 MG TAB PO SCH (21:26)
[2018-10-07] MEDS: QUEtiapine 200 MG TAB PO SCH (21:27)
[2018-10-08] MEDS: SYMBICORT 160-4.5 MCG INHALER INHALATION SCH ×3 (04:07→22:01)
[2018-10-08] MEDS: LEVOTHYROXINE 75 MCG TAB PO SCH (06:34)
[2018-10-08] MEDS: ALBUTEROL INHALER 60 PUFF/8 GM INHALER INHALATION PRN ×2 (07:08→19:30)
[2018-10-08] MEDS: IBUPROFEN 400 MG TAB PO SCH ×4 (09:03→21:59)
[2018-10-08] MEDS: NICOTINE 21MG/24HR PATCH TRANSDERM SCH (09:03)
[2018-10-08] MEDS: GABAPENTIN 300 MG CAP PO SCH ×3 (09:03→22:00)
[2018-10-08] MEDS: THIAMINE 100 MG TAB PO SCH (09:04)
[2018-10-08] MEDS: QUEtiapine 100 MG TAB PO SCH ×2 (09:04→16:43)
[2018-10-08] MEDS: FOLIC ACID 1 MG TAB PO SCH (09:04)
[2018-10-08] MEDS: FAMOTIDINE 20 MG TAB PO SCH (09:04)
[2018-10-08] MEDS: INCRUSE ELLIPTA 62.5 MG PO SCH (09:05)
--- NOTE | 2018-10-08 11:30 | P.PN ---
Progress Note - Text Progress Note Date: 10/08/18 Interval History: Patient is a 48-year-old male who was seen today and he reports that he continues to improve, having no suicidal thoughts and states his mood is much more stable with still some episodes of sadness regarding his fiance's . Patient states that his sleep is improved he wakes up occasionally but is able to return to sleep. Patient states that he continues to have heartburn even though he is on Pepcid and is been using Maalox at night. Patient did have an upper GI 6 months ago at [facility] and was recommended to continue on Pepcid. Patient states that he has been attending groups and activities and has found it helpful and reports no side effects with the inc reased dose of Seroquel. Mental Status: Appearance/Attitude: Patient is neatly and appropriately dressed, makes eye contact and is cooperative Behavior: Patient does not display any psychomotor agitation or retardation. Speech/Language: Patient's speech is spontaneous of normal volume and rhythm and he is coherent Thought Process: Patient is goal-directed there is no evidence of loose association or flight of ideas Thought Content: Patient denies any auditory or visual hallucinations no delusions or paranoid ideation or elicited. Patient states his mood is much more stable, he is not irritable, states he has some periods of sadness about his fiance's but no crying spells. Patient states that he awakens at night but is able to return to sleep and is eating well. He continues to report complaints of heartburn. Suicidal/Homicidal Ideation: Patient denies any current suicidal or homicidal ideation Sensorium/Cognition: Patient is alert and oriented to person, place, time and his recent and remote memory are grossly intact Mood/Affect: Patient's mood is stable and his affect is appropriate Insight/Judgment: Patient's insight and judgment are intact Assessment: Patient discussed that he is no longer having any suicidal thoughts, states he has been more stable mood and has episodes of sadness regarding his fiance's . He reports he is no longer feeling irritable and has not had any crying spells. He states that he awakens at night but is able to return to sleep and is not having any bad dreams. Patient states that signing any side effects from the medication and is not feeling overly sedated during the day. He states that he is eating but continues to complain of heartburn and has had a recent upper GI 6 months ago and has continued taking Pepcid and using Maalox here in the hospital with little to no improvement. Patient has been attending groups and activities and finds that they have been helpful. Plan: Patient will continue on Seroquel 1 or 50 mg twice a day and 600 mg at bedtime, he has an intake at [facility] for this Friday and we discussed discharge tomorrow, patient states that he will spend Friday night in a senior living as he has no place to live at this time. Patient's discharge will be tomorrow when he was agreeable with this plan.
[2018-10-08] MEDS: PANTOPRAZOLE 40 MG TABLET PO SCH (11:48)
[2018-10-08 14:16] VITALS: BMI 20.4
[2018-10-08] MEDS: MONTELUKAST 10 MG TAB PO SCH (21:59)
[2018-10-08] MEDS: QUEtiapine 200 MG TAB PO SCH (21:59)
[2018-10-09] MEDS: LEVOTHYROXINE 75 MCG TAB PO SCH (06:10)
[2018-10-09 06:53] VITALS: BP 114/72; PULSE 73; RESP 14; TEMP 98
[2018-10-09] MEDS: PANTOPRAZOLE 40 MG TABLET PO SCH (08:39)
[2018-10-09] MEDS: NICOTINE 21MG/24HR PATCH TRANSDERM SCH (08:41)
[2018-10-09] MEDS: QUEtiapine 100 MG TAB PO SCH (08:43)
[2018-10-09] MEDS: THIAMINE 100 MG TAB PO SCH (08:44)
[2018-10-09] MEDS: FAMOTIDINE 20 MG TAB PO SCH (08:44)
[2018-10-09] MEDS: GABAPENTIN 300 MG CAP PO SCH (08:44)
[2018-10-09] MEDS: FOLIC ACID 1 MG TAB PO SCH (08:45)
[2018-10-09] MEDS: INCRUSE ELLIPTA 62.5 MG PO SCH (08:46)
[2018-10-09] MEDS: IBUPROFEN 400 MG TAB PO SCH (08:47)
[2018-10-09] MEDS: SYMBICORT 160-4.5 MCG INHALER INHALATION SCH (09:22)
--- NOTE | 2018-10-09 10:35 | P.DS ---
Providers Date of admission: 09/26/18 12:08 Expected date of discharge: 10/09/18 Attending physician: Harini Stewart MD Consults: 09/26/18 12:26 Consult Physician Routine Consulting Provider: [facility] Physician Consult Reason/Comments: H&P for mental health consult Do you want consulting provider notified?: Yes Primary care physician: Teddy Mcdermott Hospital Course: Discharge Diagnosis: Bipolar disorder, current episode depressed; alcohol use disorder, cocaine use disorder, marijuana use disorder Reason for Admission: Patient stated his girlfriend/fianc of seven years on September 05, 2018. Things have fallen apart since then he says. He reports crying spells, no motivation, does not want to work, stressed at work, reports missing lot of time at work, started drinking heavily since the of his girlfriend, prior to that he says he is beer drinker. He states his girl friend, majo, children will be calling him constantly. He reports feeling extremely, sad, hopeless, looking at his girl friends picture, called his sister and threatened suicidal ideations due to feeling, frustrated. He stated he was also drunk at that time, reports to have consumed a litre of vodka. He stated he did not want to hurt self and decided to go the hospital and get help. He claims to have walked to the hospital as he did not want to drive under the influence of alcohol. He stated kendal in God, kendal things could get better, and believing in self keeps him moving forward in his life and currently denies any intentions or plans to hurt self or others. He reports mood swings and says he is quick to change, stating he could be feeling down and if something good comes up he would snap into being happy and upbeat. He denies current auditory or visual hallucinations. He reports feeling paranoid at times depending upon the situation. 48 year old male, appears stated age in fair grooming and hygiene. Maintains good eye contact. No abnormal movements noted. speech and thought process are goal directed. mood is reported as sad affect constricted. Denies current auditory or visual hallucinations . denies current paranoid ideations. The patient is alert and oriented 4 and in no apparent distress. Denies current suicidal or homicidal ideation. insight and judgment are improving, wants to get help and get better. Hospital Course: Patient was admitted on a voluntary basis, placed on routine observation in group and activity therapy were ordered. Patient also had routine laboratory studies as well as a medical consultation. Patient was continued on his medications for his medical problems. 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 Patient been diagnosed in the past with manic depression and had been placed on Seroquel 450 mg daily and reported that it did well for him they've been off medication for a number of years. Patient was able to endorse a history of manic behavior as well as depressive episodes and his most recent episode of depression was precipitated by the recent of his fiance due to an overdose. Patient states that he had been pretty stable for a number of years and was able to work and had a lot of energy and the only difficulty that he had was impulsively spending money. Patient states that he had not been feeling suicidal or depressed. A number of years until the of his fiance. Patient presented to the hospital with complaints of depression, irritability and suicidal thoughts. Patient was restarted on Seroquel and it was slowly titrated to a dose of 150 mg twice a day and 600 mg at bedtime, he was initially placed on Wellbutrin which was discontinued due to his diagnosis of bipolar disorder. Patient was initially on Ativan to prevent any alcohol withdrawal and the Ativan was eventually discontinued as well. Patient reported that he was slowly improving his sleep improved, he was no longer having bad dreams about the of his fiance, was feeling much less depressed and no longer feeling irritable. He reported no longer having suicidal thoughts and was no longer feeling guilty about the of his fiance. Patient continued to report complaints of heartburn and so X was also added in addition to the Pepcid that he had been taking as an outpatient. Patient reported that his appetite had returned and he was eating well and was sleeping at least 7 hours a night. Patient voiced his wish to go to inpatient rehab so that he would not return to using alcohol, patient states that he began using alcohol after his fianc's and was drinking heavily prior to his admission. Patient also reported that he had lost his job as as well his housing as he was renting his housing from his prior boss. Patient attended groups and activities and found them beneficial and reported no side effects from the medication, he contacted [facility] and has an intake for October 10 and felt that he was ready for discharge. Patient will live for one night in a fdc prior to going to [facility] for his intake on the day after discharge. Allergies No Known Allergies Allergy (Verified 09/26/18 12:58) Laboratory Last Values WBC 6.5 k/uL (3.8-10.6) 09/26/18 14:00 RBC 5.06 m/uL (4.30-5.90) 09/26/18 14:00 Hgb 15.0 gm/dL (13.0-17.5) 09/26/18 14:00 Hct 46.9 % (39.0-53.0) 09/26/18 14:00 MCV 92.7 fL (80.0-100.0) 09/26/18 14:00 MCH 29.7 pg (25.0-35.0) 09/26/18 14:00 MCHC 32.0 g/dL (31.0-37.0) 09/26/18 14:00 RDW 16.1 % (11.5-15.5) H 09/26/18 14:00 Plt Count 160 k/uL (150-450) 09/26/18 14:00 Neutrophils % 51 % 09/26/18 14:00 Lymphocytes % 33 % 09/26/18 14:00 Monocytes % 8 % 09/26/18 14:00 Eosinophils % 3 % 09/26/18 14:00 Basophils % 1 % 09/26/18 14:00 Neutrophils # 3.3 k/uL (1.3-7.7) 09/26/18 14:00 Lymphocytes # 2.1 k/uL (1.0-4.8) 09/26/18 14:00 Monocytes # 0.5 k/uL (0-1.0) 09/26/18 14:00 Eosinophils # 0.2 k/uL (0-0.7) 09/26/18 14:00 Basophils # 0.1 k/uL (0-0.2) 09/26/18 14:00 Anisocytosis Slight 09/26/18 14:00 Sodium 141 mmol/L (137-145) 09/27/18 07:23 Potassium 4.9 mmol/L (3.5-5.1) 09/27/18 07:23 Chloride 104 mmol/L (98-107) 09/27/18 07:23 Carbon Dioxide 28 mmol/L (22-30) 09/27/18 07:23 Anion Gap 9 mmol/L 09/27/18 07:23 BUN 21 mg/dL (9-20) H 09/27/18 07:23 Creatinine 1.27 mg/dL (0.66-1.25) H 09/27/18 07:23 Est GFR (CKD-EPI)AfAm 77 (>60 ml/min/1.73 sqM) 09/27/18 07:23 Est GFR (CKD-EPI)NonAf 66 (>60 ml/min/1.73 sqM) 09/27/18 07:23 Glucose 104 mg/dL (74-99) H 09/27/18 07:[address] Glu mg/dL 103 09/26/18 14:00 Hemoglobin A1c 5.2 % (4.0-6.0) 09/26/18 14:00 Calcium 10.1 mg/dL (8.4-10.2) 09/27/18 07:23 Total Bilirubin 0.6 mg/dL (0.2-1.3) 09/26/18 14:00 AST 61 U/L (17-59) H 09/26/18 14:00 ALT 43 U/L (21-72) 09/26/18 14:00 Alkaline Phosphatase 96 U/L (38-126) 09/26/18 14:00 Total Protein 8.3 g/dL (6.3-8.2) H 09/26/18 14:00 Albumin 4.8 g/dL (3.5-5.0) 09/26/18 14:00 Triglycerides 69 mg/dL (<150) 09/26/18 14:00 Cholesterol 251 mg/dL (<200) H 09/26/18 14:00 LDL Cholesterol, Calc 92 mg/dL (0-99) 09/26/18 14:00 HDL Cholesterol 145 mg/dL (40-60) H 09/26/18 14:00 TSH 12.100 mIU/L (0.465-4.680) H 09/27/18 07:23 Free T4 0.91 ng/dL (0.78-2.19) 09/27/18 07:23 Urine Color Yellow 09/30/18 17:31 Urine Appearance Clear (Clear) 09/30/18 17:31 Urine pH 7.0 (5.0-8.0) 09/30/18 17:31 Ur Specific Jay Em 1.026 (1.001-1.035) 09/30/18 17:31 Urine Protein Negative (Negative) 09/30/18 17:31 Urine Glucose (UA) Negative (Negative) 09/30/18 17: Urine Ketones Negative (Negative) 09/30/18 17:31 Urine Blood Negative (Negative) 09/30/18 17: Urine Nitrite Negative (Negative) 09/30/18 17: Urine Bilirubin Negative (Negative) 09/30/18 17: Urine Urobilinogen <2.0 mg/dL (<2.0) 09/30/18 17: Ur Leukocyte Esterase Negative (Negative) 09/30/18 17:31 Urine Opiates Screen Not Detected (NotDetected) 09/26/18 04:40 Ur Oxycodone Screen Not Detected (NotDetected) 09/26/18 04:40 Urine Methadone Screen Not Detected (NotDetected) 09/26/18 04:40 Ur Propoxyphene Screen Not Detected (NotDetected) 09/26/18 04:40 Ur Barbiturates Screen Not Detected (NotDetected) 09/26/18 04:40 U Tricyclic Antidepress Not Detected (NotDetected) 09/26/18 04:40 Ur Phencyclidine Scrn Not Detected (NotDetected) 09/26/18 04:40 Ur Amphetamines Screen Not Detected (NotDetected) 09/26/18 04:40 U Methamphetamines Scrn Not Detected (NotDetected) 09/26/18 04:40 U Benzodiazepines Scrn Not Detected (NotDetected) 09/26/18 04:40 Urine Cocaine Screen Detected (NotDetected) H 09/26/18 04:40 U Marijuana (THC) Screen Not Detected (NotDetected) 09/26/18 04:40 Thyroglobulin Antibody >2500.0 U/mL (0.0-59.9) H 10/02/18 10:44 Thyroid Peroxidase Ab >90891.0 U/mL (0.0-59.9) H 10/02/18 10:44 Discharge Mental Status: Appearance/Attitude: Patient is neatly and appropriately dressed, makes good eye contact and is cooperative. Behavior: Patient does not exhibit any psychomotor agitation or retardation. Speech/Language: Patient's speech is spontaneous of normal volume and rhythm and he is coherent Thought Process: Patient is goal-directed there is no evidence of loose association or flight of ideas Thought Content: Patient denies any auditory or visual hallucinations and no delusions or paranoid ideation or elicited. Patient states that he is no longer having bad dreams at night his sleep is restful, he is eating well and he reports that he is no longer feeling as sad and hopeless. He states that he is coping better with his girlfriend's and is no longer feeling irritable. Suicidal/Homicidal Ideation: Patient denies any current suicidal or homicidal ideation Sensorium/Cognition: Patient is alert and oriented to person, place, and time and his recent and remote memory are grossly intact Mood/Affect: Patient's mood is stable and his affect is appropriate Insight/Judgment: Patient's insight and judgment are intact Risk Assessment: Patient's risk for readmission is low should the patient continue to be compliant with medication and follow-up care and avoid alcohol or drugs Discharge Plan: Patient will be discharged to a fdc and then will attend an intake appointment at [facility] on October 10, patient will continue on the medications for his medical problems and he will be given prescriptions for all of them and will also continue on Seroquel 150 mg at 8 in the morning and 4 in the afternoon and 600 mg at bedtime and will be given a prescription for this as well. Patient was encouraged to avoid all alcohol and drugs and be compliant with the follow-up appointment at [facility] tomorrow October 10. Patient will also follow-up with his primary care provider regarding his continued complaints of heartburn and need for the addition of Protonix to his medications as well as following up with his primary care physician for repeat thyroid studies as well as a thyroid ultrasound due to his new diagnosis of Steve's thyroiditis. Patient Condition at Discharge: Stable Plan - Discharge Summary Discharge Rx Participant: No New Discharge Prescriptions: New Folic Acid 1 mg PO DAILY #28 tab Nicotine 21Mg/24Hr Patch [Habitrol] 1 patch TRANSDERM DAILY #28 patch Ibuprofen [Motrin] 400 mg PO QID PRN #90 tab PRN Reason: Moderate Pain Pantoprazole [Protonix] 40 mg PO AC-BRKFST #28 tablet. QUEtiapine [SEROquel] 150 mg PO 0800,1600 #42 tab QUEtiapine [SEROquel] 600 mg PO HS #21 tab Levothyroxine Sodium [Synthroid] 75 mcg PO DAILY@0630 #28 tab Thiamine [Vitamin B-1] 100 mg PO DAILY #28 tab Continue Acetaminophen Tab [Tylenol] 650 mg PO DIRECTED PRN PRN Reason: Pain Umeclidinium Lyons [Incruse Ellipta] 1 puff INHALATION RT-DAILY #1 blst.w.dev Gabapentin [Neurontin] 600 mg PO TID #84 tablet Famotidine [Pepcid] 20 mg PO DAILY #28 tab Montelukast [Singulair] 10 mg PO HS #28 tab Budesonide-Formot 160-4.5 Mcg [Symbicort 160-4.5 Mcg Inhaler] 2 puff INHALATION RT-BID #1 puff Albuterol Inhaler [Ventolin Hfa Inhaler] 2 puff INHALATION RT-Q6H PRN #1 puff PRN Reason: Shortness Of Breath Discharge Medication List Acetaminophen Tab [Tylenol] 650 mg PO DIRECTED PRN 09/26/18 [History] Albuterol Inhaler [Ventolin Hfa Inhaler] 2 puff INHALATION RT-Q6H PRN #1 puff 10/09/18 [Rx] Budesonide-Formot 160-4.5 Mcg [Symbicort 160-4.5 Mcg Inhaler] 2 puff INHALATION RT-BID #1 puff 10/09/18 [Rx] Famotidine [Pepcid] 20 mg PO DAILY #28 tab 10/09/18 [Rx] Folic Acid 1 mg PO DAILY #28 tab 10/09/18 [Rx] Gabapentin [Neurontin] 600 mg PO TID #84 tablet 10/09/18 [Rx] Ibuprofen [Motrin] 400 mg PO QID PRN #90 tab 10/09/18 [Rx] Levothyroxine Sodium [Synthroid] 75 mcg PO DAILY@0630 #28 tab 10/09/18 [Rx] Montelukast [Singulair] 10 mg PO HS #28 tab 10/09/18 [Rx] Nicotine 21Mg/24Hr Patch [Habitrol] 1 patch TRANSDERM DAILY #28 patch 10/09/18 [Rx] Pantoprazole [Protonix] 40 mg PO CHUCK-LURDESKSTEPHANY #28 tablet. 10/09/18 [Rx] QUEtiapine [SEROquel] 150 mg PO 0800,1600 #42 tab 10/09/18 [Rx] QUEtiapine [SEROquel] 600 mg PO HS #21 tab 10/09/18 [Rx] Thiamine [Vitamin B-1] 100 mg PO DAILY #28 tab 10/09/18 [Rx] Umeclidinium Lyons [Incruse Ellipta] 1 puff INHALATION RT-DAILY #1 blst.w.dev 10/09/18 [Rx] Follow up Appointment(s)/Referral[facility]): [facility] - 10/10/18 10:45 am Teddy Mcdermott MD [Primary Care Provider] - 1-2 days Patient Instructions/Handouts: Depression (DC), Autoimmune Thyroid Disorders (GEN), Suicide Prevention (DC) Activity/Diet/Wound Care/Special Instructions: Activity and diet as tolerated. NO guns or weapons in the home. REFRAIN from alcohol and drugs not prescribed by your physician. Attend all follow up appointments as scheduled. Take all medications as prescribed. If in need of medication refills, please go to your primary care physician, or to your out patient psychiatric provider. If in crisis, please call , or go to the nearest ER. Repeat thyroid testing with Dr. Mcdermott in 4-6 weeks. Will need thyroid ultrasound. Discharge Disposition: HOME SELF-CARE
== END 2018-10-09 13:49 | disposition home or self-care (01) | DRG 885 ==
LOC: EC 18:57 → 3MHU 09-26 12:08
PROVIDERS: ADMIT Psychiatry & Neurology Psychiatry; ATTEND Psychiatry & Neurology Psychiatry
DX: F31.32 Bipolar disorder, current episode depressed, moderate (principal); E43 Unspecified severe protein-calorie malnutrition; R45.851 Suicidal ideations; R64 Cachexia; F10.239 Alcohol dependence with withdrawal, unspecified; E86.0 Dehydration; J45.909 Unspecified asthma, uncomplicated; F12.90 Cannabis use, unspecified, uncomplicated; F14.10 Cocaine abuse, uncomplicated; K21.9 Gastro-esophageal reflux disease without esophagitis; E06.3 Autoimmune thyroiditis; F10.229 Alcohol dependence with intoxication, unspecified; G47.00 Insomnia, unspecified; M19.90 Unspecified osteoarthritis, unspecified site; R45.87 Impulsiveness; F41.9 Anxiety disorder, unspecified; M06.9 Rheumatoid arthritis, unspecified; G89.29 Other chronic pain; M54.9 Dorsalgia, unspecified; F17.210 Nicotine dependence, cigarettes, uncomplicated; Z68.20 Body mass index [BMI] 20.0-20.9, adult; Z71.6 Tobacco abuse counseling; Z79.51 Long term (current) use of inhaled steroids; Z79.899 Other long term (current) drug therapy; Z56.0 Unemployment, unspecified; Z98.890 Other specified postprocedural states; Z82.5 Family history of asthma and other chronic lower respiratory diseases; Z82.61 Family history of arthritis
CPT/HCPCS: 71046; 80048; 80053; 80061; 80306; 81003; 82075; 83036; 84439; 84443; 85025; 86376; 86800; 93005; 94640; 99285